=== PATIENT | female | born 1950 | race Caucasian/White ===

== ENCOUNTER 2021-07-09 13:58 | Inpatient (IN) | payer MEDICARE ==
[2021-07-09] MEDS ORDERED: Sodium Chloride 0.9% 10 ML Syringe FLUSH PRN (14:00)
--- NOTE | 2021-07-09 14:11 | EDM.PDOC ---
ED HPI GENERAL MEDICAL PROBLEM - General Chief Complaint: General Stated Complaint: GENERALIZED WEAKNESS Time Seen by Provider: 07/09/21 14:00 Source of Information: Reports: Patient History Limitations: Reports: No Limitations - History of Present Illness INITIAL COMMENTS - FREE TEXT/NARRATIVE: 71 YO WF PRESENTS TO ER WITH GENERALIZED WEAKNESS WHICH BEGAN WHEN SHE WOKE THIS AM. PT REPORTS SHE GOT UP AROUND 3AM TO USE THE BATHROOM AND STATES SHE FELT FINE AT THAT TIME. PT STATES SHE FELL ASLEEP ON THE COUCH AND WOKE AROUND 10AM AND AT THAT TIME FELT WEAK AND UNABLE TO STAND. PT DENIES HEADACHE/NECK PAIN, NO NUMBNESS OR PARAESTHESIAS. PT DENIES SLURRED SPEECH, NO BLURRED VISION, NO FACIAL DROOP, NO APRAXIA. PT DENIES CHEST PAIN OR SHORTNESS OF BREATH. PT DENIES ANY RECENT ILLNESS, NO FEVER/CHILLS, NO COUGH/CONGESTION, NO N/V/D. PT WITH PMH OF CAD WITH STENTS X 3 AND UNCONTROLLED HYPERTENSION. PT REPORTS SHE HASN'T TAKEN ANY OF HER MEDICATIONS X 3 YEARS. PT DOCTORS AT [facility] BUT STATES SHE HASN'T SEEN A DOCTOR IN YEARS. PT REPORTS TOBACCO USE X 60 YEARS. PT STATES 1 MONTH AGO SHE HAD A SYNCOPAL EPISODE BUT DIDN'T GO TO DOCTOR FOR EVALUATION. Onset Date: 07/09/21 Onset Time: 03:00 Location: Reports: Generalized Severity: Moderate Improves with: Reports: None Worsens with: Reports: None Associated Symptoms: Reports: Weakness. Denies: Confusion, Chest Pain, Cough, Diaphoresis, Fever/Chills, Headaches, Malaise, Nausea/Vomiting, Rash, Seizure, Shortness of Breath, Syncope - Related Data Allergies Allergy/AdvReac Type Severity Reaction Status Date / Time No Known Allergies Allergy Verified 07/09/21 14:09 Home Meds: Home Meds . [No Known Home Meds] 07/09/21 [History] ED ROS GENERAL - Review of Systems Review Of Systems: See Below Constitutional: Reports: Weakness HEENT: Reports: No Symptoms Respiratory: Reports: No Symptoms Cardiovascular: Reports: Blood Pressure Problem, Lightheadedness Endocrine: Reports: No Symptoms GI/Abdominal: Reports: No Symptoms : Reports: No Symptoms Musculoskeletal: Reports: No Symptoms Neurological: Reports: No Symptoms, Difficulty Walking, Weakness. Denies: Confusion, Headache, Numbness, Paresthesia, Seizure, Tingling, Trouble Speaking, Change in Speech, Gait Disturbance Psychiatric: Reports: No Symptoms Hematologic/Lymphatic: Reports: No Symptoms Immunologic: Reports: No Symptoms ED EXAM, NEURO - Physical Exam Exam: See Below Exam Limited By: No Limitations General Appearance: Alert, WD/WN, No Apparent Distress Eye Exam: Bilateral Eye: EOMI, PERRL Throat/Mouth: Normal Inspection, Normal Lips, Normal Teeth, Normal Gums, Normal Oropharynx, Normal Voice, No Airway Compromise Head Exam: Atraumatic, Normocephalic Neck: Normal Inspection, Supple, Non-Tender, Full Range of Motion Respiratory/Chest: No Respiratory Distress, Lungs Clear, Normal Breath Sounds, No Accessory Muscle Use, Chest Non-Tender Cardiovascular: Normal Peripheral Pulses, Regular Rate, Rhythm, No Edema, No Gallop, No JVD, No Murmur, No Rub GI/Abdominal: Normal Bowel Sounds, Soft, Non-Tender, No Organomegaly, No Disten tion, No Abnormal Bruit, No Mass Neurological: Alert, Normal Mood/Affect, Normal Dorsiflexion, CN II-XII Intact, Normal Plantar Flexion, Normal Reflexes, No Motor/Sensory Deficits, Oriented x 3, Difficulty Walking. No: Ataxia, Abnormal Finger to Nose, Abnormal Sensation, Abnormal Motor, Straight Leg Raise (L), Straight Leg Raise (R), Saddle Anesthesia Back Exam: Normal Inspection, Full Range of Motion, NT Extremities: Normal Inspection, Normal Range of Motion, Non-Tender, No Pedal Edema, Normal Capillary Refill Psychiatric: Normal Affect, Normal Mood Skin Exam: Warm, Dry, Intact, Normal Color, No Rash Course - Vital Signs Last Recorded V/S: Last Vital Signs Temp 97.7 F 07/09/21 14:03 Pulse 67 07/09/21 19:28 Resp 20 07/09/21 19:28 BP 199/103 H 07/09/21 19:28 Pulse Ox 95 07/09/21 19:28 - Orders/Labs/Meds Orders: Active Orders 24 hr Category Date Time Status Patient Status Manage Transfer [TRANSFER] Routine ADT 07/09/21 19:26 Active Patient Status [ADT] Routine ADT 07/09/21 19:28 Active Cardiac Monitoring [RC] . DIRECTED Care 07/09/21 14:00 Active Cardiac Monitoring [RC] CONTINUOUS Care 07/09/21 19:29 Active EKG Documentation Completion [RC] ASDIRECTED Care 07/09/21 18:32 Active Oxygen Therapy [RC] PRN Care 07/09/21 19:28 Active Peripheral IV Care [RC] . DIRECTED Care 07/09/21 14:01 Active Up With Assistance [RC] ASDIRECTED Care 07/09/21 19:28 Active Urinary Catheter Assessment [RC] ASDIRECTED Care 07/09/21 19:27 Active Urinary Catheter Insertion [Insert Urinary Catheter] [ Care 07/09/21 19:30 Ordered OM.PC] Q24H VTE/DVT Education [RC] PER UNIT ROUTINE Care 07/09/21 19:28 Active Vital Signs [RC] Q4H Care 07/09/21 19:28 Active UA W/MICROSCOPIC [URIN] Stat Lab 07/09/21 19:26 Ordered Heparin Sodium/D5W 250 ml Med 07/09/21 17:30 Active IV TITRATE Nitroglycerin/D5W [Nitroglycerin 50 MG/D5W 250 ML] Med 07/09/21 16:15 Active 50 mg in 250 ml IV TITRATE Sodium Chloride 0.9% [Normal Saline] 50 ml Med 07/09/21 17:30 Active IV ASDIRECTED Sodium Chloride 0.9% [Saline Flush] Med 07/09/21 14:00 Active 10 ml FLUSH Q8HR PRN Peripheral IV Insertion Adult [OM.PC] Routine Oth 07/09/21 14:00 Ordered Resuscitation Status Routine Resus Stat 07/09/21 19:28 Ordered EKG 12 Lead [EK] Stat Ther 07/09/21 14:00 Ordered EKG 12 Lead [EK] Stat Ther 07/09/21 18:31 Ordered Medication Orders Nitroglycerin/Dextrose (Nitroglycerin 50 Mg/D5w 250 Ml) 50 mg in 250 mls @ 3 mls/hr IV TITRATE YADIRA Last Infusion: 07/09/21 17:01 Dose: 15 mcg/min, 4.5 mls/hr Documented by: Admin: 07/09/21 16:31 Dose: 10 mcg/min, 3 mls/hr Documented by: MARIOLA Sodium Chloride (Normal Saline) 50 mls @ 200 mls/min IV ASDIRECTED YADIRA Last Admin: 07/09/21 18:14 Dose: 200 mls/min Documented by: JC Heparin Sodium/Dextrose () 250 mls @ 9.798 mls/hr IV TITRATE YADIRA; Protocol Stop: 07/10/21 17:30 Last Admin: 07/09/21 17:00 Dose: 12 units/kg/hr, 9.798 mls/hr Documented by: MAIROLA Cosigned by: JAGDEEP Sodium Chloride (Sodium Chloride 0.9% 10 Ml Syringe) 10 ml FLUSH Q8HR PRN PRN Reason: keep vein open Labs: Laboratory Tests 07/09/21 07/09/21 07/09/21 Range/Units 14:30 14:30 16:10 WBC 10.74 H (5.00-10.00) 10^3/uL RBC 5.10 (3.80-5.50) 10^6/uL Hgb 14.6 (12.0-16.0) g/dL Hct 45.3 (37.0-47.0) % MCV 88.8 (82.0-92.0) fL MCH 28.6 (27.0-31.0) pg MCHC 32.2 (32.0-36.0) g/dL RDW 14.7 H (11.5-14.5) % Plt Count 350 (150-400) 10^3/uL MPV 9.2 (7.4-10.4) fL Immature Gran % (Auto) 0.1 (0.0-5.0) % Neut % (Auto) 74.5 H (50.0-70.0) % Lymph % (Auto) 17.2 L (20.0-40.0) % [place] % (Auto) 6.7 (2.0-8.0) % Eos % (Auto) 0.7 L (1.0-3.0) % Baso % (Auto) 0.8 (0.0-1.0) % Neut # (Auto) 8.00 H (2.50-7.00) 10^3/uL Lymph # (Auto) 1.85 (1.00-4.00) 10^3/uL [place] # (Auto) 0.72 (0.10-0.80) 10^3/uL Eos # (Auto) 0.07 L (0.10-0.30) 10^3/uL Baso # (Auto) 0.09 (0.00-0.10) 10^3/uL Immature Gran # (Auto) 0.01 (0.00-0.50) 10^3/uL Sodium 144 (136-145) mmol/L Potassium 3.6 (3.5-5.1) mmol/L Chloride 106 (98-107) mmol/L Carbon Dioxide 25.9 (21.0-32.0) mmol/L Anion Gap 15.7 H (5-15) mmol/L BUN 14 (7-18) mg/dL Creatinine 0.85 (0.51-1.17) mg/dL Est Cr Clr Drug Dosing 2.19 mL/min Estimated GFR (MDRD) > 60 mL/min Glucose 90 (70-140) mg/dL Calcium 10.0 (8.7-10.3) mg/dL Total Bilirubin 0.3 (0.2-1.0) mg/dL AST 23 (15-37) U/L ALT 33 (14-63) U/L Alkaline Phosphatase 127 H (46-116) U/L POC Troponin I (0.00-0.08) ng/mL Troponin I High Sens 49.700 (0-51.000) pg/mL B-Natriuretic Peptide 111 H (0-100) pg/mL Total Protein 7.9 (6.4-8.2) g/dL Albumin 3.69 (3.40-5.00) g/dL 07/09/21 07/09/21 Range/Units 16:10 17:41 WBC (5.00-10.00) 10^3/uL RBC (3.80-5.50) 10^6/uL Hgb (12.0-16.0) g/dL Hct (37.0-47.0) % MCV (82.0-92.0) fL MCH (27.0-31.0) pg MCHC (32.0-36.0) g/dL RDW (11.5-14.5) % Plt Count (150-400) 10^3/uL MPV (7.4-10.4) fL Immature Gran % (Auto) (0.0-5.0) % Neut % (Auto) (50.0-70.0) % Lymph % (Auto) (20.0-40.0) % [place] % (Auto) (2.0-8.0) % Eos % (Auto) (1.0-3.0) % Baso % (Auto) (0.0-1.0) % Neut # (Auto) (2.50-7.00) 10^3/uL Lymph # (Auto) (1.00-4.00) 10^3/uL [place] # (Auto) (0.10-0.80) 10^3/uL Eos # (Auto) (0.10-0.30) 10^3/uL Baso # (Auto) (0.00-0.10) 10^3/uL Immature Gran # (Auto) (0.00-0.50) 10^3/uL Sodium (136-145) mmol/L Potassium (3.5-5.1) mmol/L Chloride (98-107) mmol/L Carbon Dioxide (21.0-32.0) mmol/L Anion Gap (5-15) mmol/L BUN (7-18) mg/dL Creatinine (0.51-1.17) mg/dL Est Cr Clr Drug Dosing mL/min Estimated GFR (MDRD) mL/min Glucose (70-140) mg/dL Calcium (8.7-10.3) mg/dL Total Bilirubin (0.2-1.0) mg/dL AST (15-37) U/L ALT (14-63) U/L Alkaline Phosphatase (46-116) U/L POC Troponin I 0.04 (0.00-0.08) ng/mL Troponin I High Sens 65.000 H* (0-51.000) pg/mL B-Natriuretic Peptide (0-100) pg/mL Total Protein (6.4-8.2) g/dL Albumin (3.40-5.00) g/dL Meds: Medications Generic Name Dose Route Start Last Admin Trade Name Freq PRN Reason Stop Dose Admin Nitroglycerin/Dextrose 50 mg in 250 mls @ 3 mls/hr 07/09/21 16:15 07/09/21 17:01 Nitroglycerin 50 Mg/D5w 250 Ml IV 15 mcg/min TITRATE YADIRA 4.5 mls/hr Infusion 10 MCG/MIN Sodium Chloride 50 mls @ 200 mls/min 07/09/21 17:30 07/09/21 18:14 Normal Saline IV 200 mls/min ASDIRECTED YADIRA Administration Heparin Sodium/Dextrose 250 mls @ 9.798 mls/hr 07/09/21 17:30 07/09/21 17:00 IV 07/10/21 17:30 12 units/kg/hr TITRATE YADIRA 9.798 mls/hr Administration Protocol 12 UNITS/KG/HR Sodium Chloride 10 ml 07/09/21 14:00 Sodium Chloride 0.9% 10 Ml Syringe FLUSH Q8HR PRN keep vein open Discontinued Medications Generic Name Dose Route Start Last Admin Trade Name Freq PRN Reason Stop Dose Admin Aspirin 324 mg 07/09/21 16:01 07/09/21 16:18 Aspirin 81 Mg Tab.Chew PO 07/09/21 16:02 324 mg ONETIME ONE Administration Heparin Sodium (Porcine) 5,000 units 07/09/21 16:05 07/09/21 16:23 Heparin Sodium 5,000 Units/Ml Vial IVPUSH 07/09/21 16:06 5,000 units ONETIME ONE Administration Heparin Sodium/Dextrose 250 mls @ 0.282 mls/hr 07/09/21 16:15 IV TITRATE YADIRA Protocol 12 UNITS/KG/HR Iopamidol 75 ml 07/09/21 17:22 07/09/21 18:14 Iopamidol 755 Mg/Ml 75 Ml Bottle IVPUSH 07/09/21 17:23 75 ml ONETIME ONE Administration Metoprolol Tartrate 5 mg 07/09/21 15:11 07/09/21 15:35 Metoprolol Tartrate 5 Mg/5 Ml Sdv IVPUSH 07/09/21 15:12 5 mg ONETIME ONE Administration Nitroglycerin 1 gm 07/09/21 14:36 07/09/21 14:40 Nitroglycerin 2% Oint 1 Gm Ud Packet TOP 07/09/21 14:37 1 gm ONETIME ONE Administration - Radiology Interpretation Free Text/Narrative:: CT HEAD- NAD CXR- NAD Departure - Departure Time of Disposition: 19:32 Disposition: Admitted As Inpatient 64 Condition: Serious Clinical Impression: Hypertensive crisis without congestive heart failure - Discharge Information Forms: ED Department Discharge Sepsis Event Note (ED) - Focused Exam Vital Signs: Vital Signs Temp Pulse Pulse Resp BP BP BP 07/09/21 19:28 67 20 199/103 H 07/09/21 17:34 67 13 197/93 H 07/09/21 16:30 68 16 256/106 H 07/09/21 16:15 70 16 215/103 H 07/09/21 16:00 66 16 231/100 H 07/09/21 15:46 62 15 231/100 H 07/09/21 15:38 67 15 211/103 H 07/09/21 15:35 68 211/103 H 07/09/21 14:33 89 21 H 242/107 H 07/09/21 14:03 97.7 F 97 19 188/110 H Pulse Ox 07/09/21 19:28 95 07/09/21 17:34 97 07/09/21 16:30 98 07/09/21 16:15 98 07/09/21 16:00 98 07/09/21 15:46 98 07/09/21 15:38 98 07/09/21 15:35 07/09/21 14:33 94 L 07/09/21 14:03 95 - My Orders Last 24 Hours: My Active Orders 07/09/21 14:00 Cardiac Monitoring [RC] . DIRECTED Sodium Chloride 0.9% [Saline Flush] 10 ml FLUSH Q8HR PRN Peripheral IV Insertion Adult [OM.PC] Routine EKG 12 Lead [EK] Stat 07/09/21 14:01 Peripheral IV Care [RC] . DIRECTED 07/09/21 16:15 Nitroglycerin/D5W [Nitroglycerin 50 MG/D5W 250 ML] 50 mg in 250 ml IV TITRATE 07/09/21 17:30 Heparin Sodium/D5W 250 ml IV TITRATE Sodium Chloride 0.9% [Normal Saline] 50 ml IV ASDIRECTED 07/09/21 18:31 EKG 12 Lead [EK] Stat 07/09/21 18:32 EKG Documentation Completion [RC] ASDIRECTED 07/09/21 19:26 Patient Status Manage Transfer [TRANSFER] Routine UA W/MICROSCOPIC [URIN] Stat 07/09/21 19:27 Urinary Catheter Assessment [RC] ASDIRECTED 07/09/21 19:28 Patient Status [ADT] Routine Oxygen Therapy [RC] PRN Up With Assistance [RC] ASDIRECTED VTE/DVT Education [RC] PER UNIT ROUTINE Vital Signs [RC] Q4H Resuscitation Status Routine 07/09/21 19:29 Cardiac Monitoring [RC] CONTINUOUS 07/09/21 19:30 Urinary Catheter Insertion [Insert Urinary Catheter] [OM.PC] Q24H - Assessment/Plan Last 24 Hours: My Active Orders 07/09/21 14:00 Cardiac Monitoring [RC] . DIRECTED Sodium Chloride 0.9% [Saline Flush] 10 ml FLUSH Q8HR PRN Peripheral IV Insertion Adult [OM.PC] Routine EKG 12 Lead [EK] Stat 07/09/21 14:01 Peripheral IV Care [RC] . DIRECTED 07/09/21 16:15 Nitroglycerin/D5W [Nitroglycerin 50 MG/D5W 250 ML] 50 mg in 250 ml IV TITRATE 07/09/21 17:30 Heparin Sodium/D5W 250 ml IV TITRATE Sodium Chloride 0.9% [Normal Saline] 50 ml IV ASDIRECTED 07/09/21 18:31 EKG 12 Lead [EK] Stat 07/09/21 18:32 EKG Documentation Completion [RC] ASDIRECTED 07/09/21 19:26 Patient Status Manage Transfer [TRANSFER] Routine UA W/MICROSCOPIC [URIN] Stat 07/09/21 19:27 Urinary Catheter Assessment [RC] ASDIRECTED 07/09/21 19:28 Patient Status [ADT] Routine Oxygen Therapy [RC] PRN Up With Assistance [RC] ASDIRECTED VTE/DVT Education [RC] PER UNIT ROUTINE Vital Signs [RC] Q4H Resuscitation Status Routine 07/09/21 19:29 Cardiac Monitoring [RC] CONTINUOUS 07/09/21 19:30 Urinary Catheter Insertion [Insert Urinary Catheter] [OM.PC] Q24H Assessment:: 1. HYPERTENSIVE CRISIS 2. ABNORMAL EKG 3. GENERALIZED WEAKNESS Plan: 1. DISCUSSED CASE WITH CARDIOLOGY DR NIKIA MART WHO LOOKED AT EKG AND REQUESTED REPEAT TROP I AND BNP TO RULE OUT HEART FAILURE AND POSSIBLE STEMI. [employer]BE [employer]ATER ALSO CONCERNED ABOUT POSSIBLE DISSECTION BUT RECOMMENDED HOLDING CTA AT THIS TIME IN CASE PATIENT NEEDS TO GO TO PROPERTY LOSS INSURANCE CLAIM ADJUSTER. ADDITIONAL RECOMMENDATIONS FOLLOWS: 1. NITRO GTT- KEEP SYSTOLIC BP >170 2. HEPARIN GTT WITH BOLUS 3. ASA 325MG NOW 4. ATORVASTATIN 80MG 5. LOPRESSOR 25MG BID CONTINUE WITH HR>50 6. I-STAT TROP I NOW 7. BNP TO RULE OUT UNDERLYING HEART FAILURE DISCUSSED WITH CARDIOLOGY- REPEAT EKG/AORTAGRAM-AND MEDICAL MANAGEMENT. NO BEDS/NO PROPERTY LOSS INSURANCE CLAIM ADJUSTER. DISCUSSED WITH DR BERENICE ROBIN- ACCEPTED ADMISSION FOR MANAGEMENT OF HYPERTENSION AND RULE OUT NONSTEMI @1930 SUPPORTIVE CARE
[2021-07-09] MEDS ORDERED: Nitroglycerin 2% Oint 1 GM UD Packet TOP ONE (14:36)
[2021-07-09 15:00] LABS: ANION GAP 15.7 mmol/L (5-15); CHLORIDE,CL 106 mmol/L (98-107); SODIUM,NA 144 mmol/L (136-145)
--- NOTE | 2021-07-09 15:10 | CT ---
[id number] CT/CT Head WO IV EXAM: CT Head WO IV CLINICAL DATA: WEAKNESS. COMPARISON STUDY: None FINDINGS: No intracranial hemorrhage, extra-axial fluid collection, mass, or acute ischemia. Generalized parenchymal atrophy with scattered areas of nonspecific white matter disease, commonly seen as sequela of chronic microvascular ischemia. Soft tissues are unremarkable. Moderate paranasal sinus disease. No evidence of aggressive sinusitis. IMPRESSION: No acute intracranial findings. Raymond Sweeney DO 07/09/21 [id number] Thank you for allowing us to participate in the care of your patient.
[2021-07-09] MEDS ORDERED: Metoprolol Tartrate 5 MG/5 ML SDV IVPUSH ONE (15:11)
--- NOTE | 2021-07-09 15:16 | CR ---
[id number] RAD/RAD Chest PA or AP 1V EXAM: RAD Chest PA or AP 1V INDICATION: WEAKNESS. COMPARISON: None. DISCUSSION: Cardiomediastinal silhouette is normal in size and contour. No infiltrate, effusion, pneumothorax, or edema. Low lung volumes with associated vascular crowding. IMPRESSION: No acute cardiopulmonary abnormality. Raymond Sweeney DO 07/09/21 1516 Thank you for allowing us to participate in the care of your patient.
[2021-07-09] MEDS ORDERED: Aspirin 81 MG Tab.Chew PO ONE (16:01)
[2021-07-09] MEDS ORDERED: Heparin Sodium 5,000 Units/ML Vial IVPUSH ONE (16:05)
[2021-07-09] MEDS ORDERED: Heparin Sodium/D5W 250 ML IV SCH ×2 (16:15→17:30)
[2021-07-09] MEDS ORDERED: Iopamidol 755 Mg/ML 75 ML Bottle IVPUSH ONE (17:22)
[2021-07-09] MEDS ORDERED: Sodium Chloride 0.9% 50 ML IV SCH (17:30)
--- NOTE | 2021-07-09 18:41 | CT ---
[id number] CT/CTA Chest EXAM: CTA CHEST ABDOMEN PELVIS. INDICATION: RULE OUT AORTIC DISSECTION. COMPARISON: None. DISCUSSION: Extensive atherosclerotic calcifications of the aorta and its branches. There is an ulcerating plaque involving the distal abdominal aorta. No dissection or aneurysm is identified. The pulmonary arteries are normal in appearance with no emboli identified. The lungs are clear with no nodule, infiltrate or mass identified.No pleural or pericardial effusion. Normal heart size. No mediastinal, hilar or axillary lymphadenopathy. Cholelithiasis without evidence of acute cholecystitis. General hypodensity liver consistent with hepatic steatosis. The spleen, pancreas, adrenal glands and kidneys are unremarkable. No evidence of bowel obstruction or inflammation. IMPRESSION: 1. No evidence of aortic dissection. Raymond Sweeney DO 07/09/21 1695 Thank you for allowing us to participate in the care of your patient.
[2021-07-09] MEDS: Metoprolol Tartrate 50 MG Tab PO SCH (21:41)
[2021-07-09] MEDS: atorvaSTATin 40 MG Tab PO SCH (21:42)
[2021-07-10] MEDS ORDERED: Nitroglycerin 0.4 MG Tab.SL SL PRN (00:21)
[2021-07-10] MEDS ORDERED: Lidocaine 2% 100 MG/5 ML Syringe IVPUSH PRN (00:21)
[2021-07-10] MEDS ORDERED: EPINEPHrine 1:10,000 1 MG/10 ML Syringe IVPUSH PRN (00:21)
[2021-07-10] MEDS ORDERED: Atropine 0.1 MG/ML 10 ML Syringe IVPUSH PRN (00:21)
[2021-07-10 07:16] LABS: ANION GAP 15.1 mmol/L (5-15); CHLORIDE,CL 104 mmol/L (98-107); SODIUM,NA 141 mmol/L (136-145)
[2021-07-10] MEDS: Metoprolol Tartrate 50 MG Tab PO SCH ×2 (08:36→21:48)
[2021-07-10] MEDS: Aspirin 81 MG Tab.Chew PO SCH (08:36)
[2021-07-10 08:53] LABS: HEMOGLOBIN A1C 5.6 % (4.3-5.7)
[2021-07-10] MEDS: amLODIPine 5 MG Tab PO SCH (12:40)
[2021-07-10] MEDS: Lisinopril 10 MG Tab PO SCH (12:40)
--- NOTE | 2021-07-10 16:58 | PCM.HP.2 ---
H&P History of Present Illness - General Date of Service: 07/10/21 Admit Problem/Dx: Admission Diagnosis/Problem Admission Diagnosis/Problem Hypertensive crisis without congestive heart failure - History of Present Illness Initial Comments - Free Text/Narative: 71 year old female admitted inpatient for hypertensive emergency/NSTEMI. She presented to the ED on 07/09/2021 with complaints of generalized weakness. She was ruled out for STEMI and dissection and admitted for medical management of hypertension. Unknown comorbid conditions. Patient reports she has not had medical care in years. - Related Data Allergies/Adverse Reactions: Allergies Allergy/AdvReac Type Severity Reaction Status Date / Time thimerosal Allergy Facial Verified 07/09/21 21:19 Swelling Home Medications: Home Meds . [No Known Home Meds] 07/09/21 [History] Past Medical History HEENT History: Reports: Impaired Vision Cardiovascular History: Reports: Hypertension, SD, Stents Respiratory History: Reports: Bronchitis, Recurrent SOMMELIER History: Reports: Musculoskeletal History: Reports: None Neurological History: Reports: None Psychiatric History: Reports: None Endocrine/Metabolic History: Reports: None Hematologic History: Reports: None Immunologic History: Reports: None Oncologic (Cancer) History: Reports: None Dermatologic History: Reports: None - Infectious Disease History Infectious Disease History: Reports: Chicken Pox, Measles, Mumps, Other (See Below) Other Infectious Disease History: Hepatitis unknown type - Past Surgical History Cardiovascular Surgical History: Reports: Coronary Artery Stent Female Surgical History: Reports: Hysterectomy Endocrine Surgical History: Reports: None Neurological Surgical History: Reports: None Musculoskeletal Surgical History: Reports: None Dermatological Surgical History: Reports: None Social & Family History - Tobacco Use Tobacco Use Status *Q: Current Every Day Tobacco User Years of Tobacco use: 60 Packs/Tins Daily: 0.5 - Caffeine Use Caffeine Use: Reports: Soda - Recreational Drug Use Recreational Drug Use: No H&P Review of Systems - Review of Systems: Review Of Systems: See Below General: Reports: Weakness, Fatigue. Denies: Fever HEENT: Denies: Dysphasia, Headaches, Sinus Congestion, Sore Throat, Visual Changes Pulmonary: Denies: Shortness of Breath, Wheezing, Cough Cardiovascular: Reports: Edema. Denies: Chest Pain, Lightheadedness Gastrointestinal: Denies: Abdominal Pain, Constipation, Diarrhea, Melena, Nausea, Vomiting Genitourinary: Reports: Other. Denies: Dysuria, Frequency, Urgency Musculoskeletal: Reports: Back Pain, Leg Pain, Muscle Pain Skin: Denies: Pallor, Bruising, Rash Psychiatric: Denies: Confusion, Depression, Anxiety Neurological: Reports: Difficulty Walking (weak). Denies: Confusion, Headache Exam - Exam Exam: See Below - Vital Signs Vital Signs: Last Vital Signs Temp 36.6 C 07/10/21 15:15 Pulse 61 07/10/21 16:30 Resp 18 07/10/21 15:15 BP 164/65 H 07/10/21 16:30 Pulse Ox 96 07/10/21 15:15 Weight: 81.647 kg - Exam Physical Exam Comments:: GENERAL: Ill-appearing adult in no acute distress. HEENT: Normocephalic, atraumatic. Conjunctiva clear. Nares patent without discharge. Mucous membranes moist, posterior pharynx unremarkable. NECK: Supple, no masses. CV: Regular rate and rhythm, no murmurs, rubs, or gallops. 2+ radial pulses. PULMONARY: Normal effort, scattered rhonchi noted. ABDOMEN: Positive bowel sounds, soft, nontender, nondistended. EXTREMITIES: Trace BLE edema, no cyanosis or clubbing. MUSCULOSKELETAL: Moves all extremities well. NEUROLOGICAL: No obvious deficits. No pronator drift. Muscle strength 4+ Bilat upper extremities and 4+ RLE and 5+ LLE DERMATOLOGIC: No rashes or suspicious lesions in exposed areas. PSYCHIATRIC: Alert, interactive, appropriate affect. - Patient Data Lab Results Last 24 hrs: Laboratory Results - last 24 hr 07/09/21 07/09/21 07/09/21 Range/Units 16:10 17:41 19:47 WBC (5.00-10.00) 10^3/uL RBC (3.80-5.50) 10^6/uL Hgb (12.0-16.0) g/dL Hct (37.0-47.0) % MCV (82.0-92.0) fL MCH (27.0-31.0) pg MCHC (32.0-36.0) g/dL RDW (11.5-14.5) % Plt Count (150-400) 10^3/uL MPV (7.4-10.4) fL Immature Gran % (Auto) (0.0-5.0) % Neut % (Auto) (50.0-70.0) % Lymph % (Auto) (20.0-40.0) % Whitley % (Auto) (2.0-8.0) % Eos % (Auto) (1.0-3.0) % Baso % (Auto) (0.0-1.0) % Neut # (Auto) (2.50-7.00) 10^3/uL Lymph # (Auto) (1.00-4.00) 10^3/uL Whitley # (Auto) (0.10-0.80) 10^3/uL Eos # (Auto) (0.10-0.30) 10^3/uL Baso # (Auto) (0.00-0.10) 10^3/uL Immature Gran # (Auto) (0.00-0.50) 10^3/uL APTT (22.8-31.4) SEC Sodium (136-145) mmol/L Potassium (3.5-5.1) mmol/L Chloride (98-107) mmol/L Carbon Dioxide (21.0-32.0) mmol/L Anion Gap (5-15) mmol/L BUN (7-18) mg/dL Creatinine (0.51-1.17) mg/dL Est Cr Clr Drug Dosing mL/min Estimated GFR (MDRD) mL/min Glucose (70-140) mg/dL Hemoglobin A1c (4.3-5.7) % Calcium (8.7-10.3) mg/dL Total Bilirubin (0.2-1.0) mg/dL AST (15-37) U/L ALT (14-63) U/L Alkaline Phosphatase (46-116) U/L Troponin I High Sens 65.000 H* (0-51.000) pg/mL B-Natriuretic Peptide 111 H (0-100) pg/mL Total Protein (6.4-8.2) g/dL Albumin (3.40-5.00) g/dL TSH, Ultra Sensitive (0.340-4.820) uIU/mL Specimen Type Urinvoid Urine Color Yellow (YELLOW) Urine Appearance Slightly cloudy H (CLEAR) Urine pH 6.0 (5.0-9.0) Ur Specific Rodney 1.020 (1.005-1.030) Urine Protein >=300 H (NEGATIVE) mg/dL Urine Glucose (UA) Negative (NEGATIVE) mg/dL Urine Ketones Negative (NEGATIVE) mg/dL Urine Occult Blood Trace-intact H (NEGATIVE) Urine Nitrite Negative (NEGATIVE) Urine Bilirubin Negative (NEGATIVE) Urine Urobilinogen 0.2 (0.2-1.0) E.U./dL Ur Leukocyte Esterase Negative (NEGATIVE) Urine RBC 0-5 (0-5) /HPF Urine WBC 0-5 (0-5) /HPF Ur Epithelial Cells Moderate H /LPF Urine Bacteria Rare (NONE TO FEW) /HPF SARS CoV-2 RNA Rapid SATISH (NEGATIVE) 07/09/21 07/09/21 07/09/21 Range/Units 19:47 23:05 23:05 WBC (5.00-10.00) 10^3/uL RBC (3.80-5.50) 10^6/uL Hgb (12.0-16.0) g/dL Hct (37.0-47.0) % MCV (82.0-92.0) fL MCH (27.0-31.0) pg MCHC (32.0-36.0) g/dL RDW (11.5-14.5) % Plt Count (150-400) 10^3/uL MPV (7.4-10.4) fL Immature Gran % (Auto) (0.0-5.0) % Neut % (Auto) (50.0-70.0) % Lymph % (Auto) (20.0-40.0) % Whitley % (Auto) (2.0-8.0) % Eos % (Auto) (1.0-3.0) % Baso % (Auto) (0.0-1.0) % Neut # (Auto) (2.50-7.00) 10^3/uL Lymph # (Auto) (1.00-4.00) 10^3/uL Whitley # (Auto) (0.10-0.80) 10^3/uL Eos # (Auto) (0.10-0.30) 10^3/uL Baso # (Auto) (0.00-0.10) 10^3/uL Immature Gran # (Auto) (0.00-0.50) 10^3/uL APTT 102.9 H* (22.8-31.4) SEC Sodium (136-145) mmol/L Potassium (3.5-5.1) mmol/L Chloride (98-107) mmol/L Carbon Dioxide (21.0-32.0) mmol/L Anion Gap (5-15) mmol/L BUN (7-18) mg/dL Creatinine (0.51-1.17) mg/dL Est Cr Clr Drug Dosing mL/min Estimated GFR (MDRD) mL/min Glucose (70-140) mg/dL Hemoglobin A1c (4.3-5.7) % Calcium (8.7-10.3) mg/dL Total Bilirubin (0.2-1.0) mg/dL AST (15-37) U/L ALT (14-63) U/L Alkaline Phosphatase (46-116) U/L Troponin I High Sens 59.000 H* (0-51.000) pg/mL B-Natriuretic Peptide (0-100) pg/mL Total Protein (6.4-8.2) g/dL Albumin (3.40-5.00) g/dL TSH, Ultra Sensitive (0.340-4.820) uIU/mL Specimen Type Urine Color (YELLOW) Urine Appearance (CLEAR) Urine pH (5.0-9.0) Ur Specific Rodney (1.005-1.030) Urine Protein (NEGATIVE) mg/dL Urine Glucose (UA) (NEGATIVE) mg/dL Urine Ketones (NEGATIVE) mg/dL Urine Occult Blood (NEGATIVE) Urine Nitrite (NEGATIVE) Urine Bilirubin (NEGATIVE) Urine Urobilinogen (0.2-1.0) E.U./dL Ur Leukocyte Esterase (NEGATIVE) Urine RBC (0-5) /HPF Urine WBC (0-5) /HPF Ur Epithelial Cells /LPF Urine Bacteria (NONE TO FEW) /HPF SARS CoV-2 RNA Rapid SATISH Negative (NEGATIVE) 07/10/21 07/10/21 07/10/21 Range/Units 06:13 06:15 06:15 WBC 13.00 H (5.00-10.00) 10^3/uL RBC 4.46 (3.80-5.50) 10^6/uL Hgb 13.0 D (12.0-16.0) g/dL Hct 39.7 (37.0-47.0) % MCV 89.0 (82.0-92.0) fL MCH 29.1 (27.0-31.0) pg MCHC 32.7 (32.0-36.0) g/dL RDW 14.7 H (11.5-14.5) % Plt Count 302 (150-400) 10^3/uL MPV 9.3 (7.4-10.4) fL Immature Gran % (Auto) 0.2 (0.0-5.0) % Neut % (Auto) 74.5 H (50.0-70.0) % Lymph % (Auto) 14.6 L (20.0-40.0) % Whitley % (Auto) 8.4 H (2.0-8.0) % Eos % (Auto) 1.7 (1.0-3.0) % Baso % (Auto) 0.6 (0.0-1.0) % Neut # (Auto) 9.69 H (2.50-7.00) 10^3/uL Lymph # (Auto) 1.90 (1.00-4.00) 10^3/uL Whitley # (Auto) 1.09 H (0.10-0.80) 10^3/uL Eos # (Auto) 0.22 (0.10-0.30) 10^3/uL Baso # (Auto) 0.08 (0.00-0.10) 10^3/uL Immature Gran # (Auto) 0.02 (0.00-0.50) 10^3/uL APTT 68.4 H* D (22.8-31.4) SEC Sodium 141 (136-145) mmol/L Potassium 3.8 (3.5-5.1) mmol/L Chloride 104 (98-107) mmol/L Carbon Dioxide 25.7 (21.0-32.0) mmol/L Anion Gap 15.1 H (5-15) mmol/L BUN 12 (7-18) mg/dL Creatinine 0.79 (0.51-1.17) mg/dL Est Cr Clr Drug Dosing 52.46 mL/min Estimated GFR (MDRD) > 60 mL/min Glucose 118 (70-140) mg/dL Hemoglobin A1c 5.6 (4.3-5.7) % Calcium 8.9 (8.7-10.3) mg/dL Total Bilirubin 0.4 (0.2-1.0) mg/dL AST 21 (15-37) U/L ALT 26 (14-63) U/L Alkaline Phosphatase 108 (46-116) U/L Troponin I High Sens (0-51.000) pg/mL B-Natriuretic Peptide (0-100) pg/mL Total Protein 6.7 (6.4-8.2) g/dL Albumin 3.17 L (3.40-5.00) g/dL TSH, Ultra Sensitive 3.125 (0.340-4.820) uIU/mL Specimen Type Urine Color (YELLOW) Urine Appearance (CLEAR) Urine pH (5.0-9.0) Ur Specific Rodney (1.005-1.030) Urine Protein (NEGATIVE) mg/dL Urine Glucose (UA) (NEGATIVE) mg/dL Urine Ketones (NEGATIVE) mg/dL Urine Occult Blood (NEGATIVE) Urine Nitrite (NEGATIVE) Urine Bilirubin (NEGATIVE) Urine Urobilinogen (0.2-1.0) E.U./dL Ur Leukocyte Esterase (NEGATIVE) Urine RBC (0-5) /HPF Urine WBC (0-5) /HPF Ur Epithelial Cells /LPF Urine Bacteria (NONE TO FEW) /HPF SARS CoV-2 RNA Rapid SATISH (NEGATIVE) Result Diagrams: 07/10/21 06:15 07/10/21 06:15 Sepsis Event Note - Evaluation Sepsis Screening Result: No Definite Risk - Focused Exam Vital Signs: Vital Signs Temp Temp Pulse Pulse Pulse Resp BP 07/10/21 16:30 61 07/10/21 16:15 63 07/10/21 16:00 64 07/10/21 15:45 67 07/10/21 15:15 36.6 C 68 18 07/10/21 14:49 64 07/10/21 14:30 71 07/10/21 13:45 68 07/10/21 13:00 65 07/10/21 12:40 163/76 H 07/10/21 12:24 66 07/10/21 12:00 66 07/10/21 11:45 68 07/10/21 11:30 68 07/10/21 11:14 36.6 C 71 20 07/10/21 11:08 72 07/10/21 10:30 73 07/10/21 10:15 62 07/10/21 10:00 66 07/10/21 09:48 62 07/10/21 09:35 63 07/10/21 09:15 64 07/10/21 09:13 72 07/10/21 08:49 70 07/10/21 08:36 74 169/89 H 07/10/21 08:15 74 07/10/21 08:00 64 07/10/21 07:45 70 07/10/21 07:30 62 07/10/21 07:10 66 07/10/21 06:45 67 07/10/21 06:34 63 07/10/21 06:25 36.5 C 67 18 07/10/21 05:45 70 07/10/21 05:31 61 07/10/21 05:16 64 16 07/10/21 05:00 67 16 BP BP Pulse Ox 07/10/21 16:30 164/65 H 07/10/21 16:15 165/73 H 07/10/21 16:00 168/70 H 07/10/21 15:45 183/78 H 07/10/21 15:15 169/90 H 96 07/10/21 14:49 155/72 H 07/10/21 14:30 148/73 H 07/10/21 13:45 189/81 H 07/10/21 13:00 170/71 H 07/10/21 12:40 07/10/21 12:24 153/80 H 07/10/21 12:00 136/80 07/10/21 11:45 152/75 H 07/10/21 11:30 148/81 H 07/10/21 11:14 166/63 H 97 07/10/21 11:08 178/79 H 07/10/21 10:30 176/78 H 07/10/21 10:15 161/70 H 07/10/21 10:00 170/76 H 07/10/21 09:48 152/70 H 07/10/21 09:35 155/64 H 07/10/21 09:15 144/65 H 07/10/21 09:13 180/74 H 07/10/21 08:49 135/86 07/10/21 08:36 07/10/21 08:15 165/77 H 07/10/21 08:00 152/65 H 07/10/21 07:45 157/71 H 07/10/21 07:30 164/70 H 07/10/21 07:10 162/70 H 07/10/21 06:45 164/73 H 07/10/21 06:34 162/69 H 07/10/21 06:25 185/73 H 96 07/10/21 05:45 178/81 H 07/10/21 05:31 162/72 H 07/10/21 05:16 144/73 H 95 07/10/21 05:00 168/74 H 96 Problem List Initiated/Reviewed/Updated: Yes Orders Last 24hrs: Active Orders 24 hr Category Date Time Status Patient Status [ADT] Routine ADT 07/09/21 19:28 Active Cardiac Monitoring [RC] 03,07,11,15,19,23 Care 07/09/21 19:29 Active Oxygen Therapy [RC] .PRN Care 07/09/21 19:28 Active Up With Assistance [RC] DAILY Care 07/09/21 19:28 Active Urinary Catheter Assessment [RC] Care 07/09/21 19:27 Active Urinary Catheter Insertion [Insert Urinary Catheter] [ Care 07/09/21 19:30 O rdered OM.PC] Q24H Vital Signs [RC] 03,07,11,15,19,23 Care 07/09/21 19:28 Active CBC WITH AUTO DIFF [HEME] AM Lab 07/11/21 05:11 Ordered CMP [COMPREHENSIVE METABOLIC PN,CMP] [CHEM] AM Lab 07/11/21 05:11 Ordered Aspirin Med 07/10/21 08:00 Active 81 mg PO WITHBREAKFAST Atropine [Atropine 0.1 MG/ML] Med 07/10/21 00:21 Active See Dose Instructions IVPUSH ASDIRECTED PRN EPINEPHrine [EPINEPHrine 1:10,000] Med 07/10/21 00:21 Active 1 mg IVPUSH ASDIRECTED PRN Lidocaine 2% [Xylocaine 2%] Med 07/10/21 00:21 Active See Dose Instructions IVPUSH ASDIRECTED PRN Metoprolol Tartrate [Lopressor] Med 07/09/21 21:45 Active 50 mg PO BID Nitroglycerin [Nitrostat] Med 07/10/21 00:21 Active 0.4 mg SL ASDIRECTED PRN Nitroglycerin/D5W [Nitroglycerin 50 MG/D5W 250 ML] Med 07/09/21 16:15 Active 50 mg in 250 ml IV TITRATE amLODIPine [Norvasc] Med 07/10/21 11:45 Active 5 mg PO DAILY atorvaSTATin [Lipitor] Med 07/09/21 21:45 Active 80 mg PO BEDTIME lisinopriL [Prinivil] Med 07/10/21 11:30 Active 10 mg PO DAILY Resuscitation Status Routine Resus Stat 07/09/21 19:28 Ordered EKG 12 Lead [EK] Stat Ther 07/09/21 18:31 Stop Req Medication Orders Amlodipine Besylate (Amlodipine 5 Mg Tab) 5 mg PO DAILY [facility] Last Admin: 07/10/21 12:40 Dose: 5 mg Documented by: KOKI Aspirin (Aspirin 81 Mg Tab.Chew) 81 mg PO WITHBREAKFAST [facility] Last Admin: 07/10/21 08:36 Dose: 81 mg Documented by: KOKI Atorvastatin Calcium (Atorvastatin 40 Mg Tab) 80 mg PO BEDTIME [facility] Last Admin: 07/09/21 21:42 Dose: 80 mg Documented by: MEG Atropine Sulfate (Atropine 0.1 Mg/Ml 10 Ml Syringe) 0 mg IVPUSH ASDIRECTED PRN PRN Reason: Heart. Epinephrine HCl (Epinephrine 1:10,000 1 Mg/10 Ml Syringe) 1 mg IVPUSH ASDIRECTED PRN PRN Reason: Heart. Nitroglycerin/Dextrose (Nitroglycerin 50 Mg/D5w 250 Ml) 50 mg in 250 mls @ 3 mls/hr IV TITRATE [facility] Last Infusion: 07/10/21 14:34 Dose: 15 mcg/min, 4.5 mls/hr Documented by: Infusion: 07/10/21 08:49 Dose: 20 mcg/min, 6 mls/hr Documented by: Infusion: 07/10/21 08:05 Dose: 30 mcg/min, 9 mls/hr Documented by: Infusion: 07/10/21 07:50 Dose: 35 mcg/min, 10.5 mls/hr Documented by: Infusion: 07/10/21 00:18 Dose: 40 mcg/min, 12 mls/hr Documented by: Infusion: 07/09/21 19:30 Dose: 35 mcg/min, 10.5 mls/hr Documented by: Infusion: 07/09/21 19:00 Dose: 30 mcg/min, 9 mls/hr Documented by: Infusion: 07/09/21 18:15 Dose: 25 mcg/min, 7.5 mls/hr Documented by: Infusion: 07/09/21 17:45 Dose: 20 mcg/min, 6 mls/hr Documented by: Infusion: 07/09/21 17:01 Dose: 15 mcg/min, 4.5 mls/hr Documented by: Admin: 07/09/21 16:31 Dose: 10 mcg/min, 3 mls/hr Documented by: MARIOLA Lidocaine HCl (Lidocaine 2% 100 Mg/5 Ml Syringe) 0 mg IVPUSH ASDIRECTED PRN PRN Reason: Heart. Lisinopril (Lisinopril 10 Mg Tab) 10 mg PO DAILY [facility] Last Admin: 07/10/21 12:40 Dose: 10 mg Documented by: KOKI Metoprolol Tartrate (Metoprolol Tartrate 50 Mg Tab) 50 mg PO BID [facility] Last Admin: 07/10/21 08:36 Dose: 50 mg Documented by: Admin: 07/09/21 21:41 Dose: 50 mg Documented by: MEG Nitroglycerin (Nitroglycerin 0.4 Mg Tab.Sl) 0.4 mg SL ASDIRECTED PRN PRN Reason: Heart. Assessment/Plan Comment:: HPI summary: 71 year old female admitted inpatient for hypertensive emergency/NSTEMI. She presented to the ED on 07/09/2021 with complaints of generalized weakness. She was ruled out for STEMI and dissection and admitted for medical management of hypertension. Unknown comorbid conditions. Patient reports she has not had medical care in years. 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 Repeat EKG improved NSR, possible left atrial enlargement, LV hypertrophy with repolarization abnormality, inferior infarct age undetermined, rate 70. -Lab: WBC 10.74, Hgb 14.6, Hct 45.3, Plt 350, Na 144, K 3.6, Anion 15.7, BUN 14, cr 0.85, GFR >60, LFT unremarkable, initial trop HS 49.7 (neg), repeat 65 (elevated), BNP 111, COVID neg -Urine slightly cloudy, >300 protein, trace blood, mod epithelial cells, neg nitrite and rare bacteria -Nitro gtt to keep SBP <170 -Heparin gtt with bolus -ASA, atorvastatin, Lopressor -CTA: No evidence of aortic dissection -Repeats discussed with cardiology, no beds in [place], [facility] in [facility] course: 07/10/2021: No overnight concerns. Blood pressure overnight has been in the 160s-170s systolic. NO angina, dyspnea or edema. Afebrile. HR 50s. Patient reports she has not had these symptoms throughout. Suspect stress on heart related to uncontrolled BP. Heparin gtt discontinued. She continues to report generalized weakness and is unable to stand on her own. Troponin is downtrending. WBC 13 with 74.5% neutrophils, no evidence of obvious infection. Hgb 13, HCt 39.7, Na 141, K 3.8, anion 15.1, BUN 12, creatinine 0.79, GFR >60, A1c 5.6, LFT unremarkable. TSH 3.125. Hospitalization problems and plan: # Hypertensive Emergency - Start lisinopril 10mg daily and amlodipine 5mg daily - Continue nitro gtt and titrate to SBP less than 180 - Continue ASA 81mg daily - Continue atorvastatin 80mg daily - Continue metoprolol tartrate 50mg orally twice daily # Generalized weakness - Consideration of physical therapy eval if not improving next 24-48 hours as BP improves # Tobacco use - nicotine patch Chronic, stable conditions: # Hx stent placement: patient has had no medical management for years Hospitalization details: # FEN: oral intake, IV nitro infusing; electrolytes stable; regular diet # PPX: ASA # Code status: Full code # Emergency contact: # Disposition: possible discharge to [facility] if weakness does not improve after three midnights with resolution of hypertension
[2021-07-10] MEDS: Nicotine 14 MG/24 Hr Patch TRDERM SCH (17:55)
[2021-07-10] MEDS: atorvaSTATin 40 MG Tab PO SCH (21:48)
[2021-07-10] MEDS: Labetalol 100 MG/20 ML MDV IVPUSH PRN (23:36)
[2021-07-11] MEDS: Labetalol 100 MG/20 ML MDV IVPUSH PRN ×4 (01:04→18:43)
[2021-07-11] MEDS: Acetaminophen 325 MG Tab PO PRN ×2 (02:15→22:20)
[2021-07-11] MEDS: Melatonin 3 MG Tab PO PRN ×2 (02:15→22:19)
[2021-07-11] MEDS: Aspirin 81 MG Tab.Chew PO SCH (07:58)
[2021-07-11] MEDS: Lisinopril 10 MG Tab PO SCH (08:00)
[2021-07-11] MEDS: amLODIPine 5 MG Tab PO SCH (08:00)
[2021-07-11] MEDS: Metoprolol Tartrate 50 MG Tab PO SCH ×2 (08:00→20:49)
[2021-07-11] MEDS: Nicotine 14 MG/24 Hr Patch TRDERM SCH (08:00)
[2021-07-11 08:44] LABS: ANION GAP 15.4 mmol/L (5-15); CHLORIDE,CL 106 mmol/L (98-107); SODIUM,NA 143 mmol/L (136-145)
--- NOTE | 2021-07-11 12:47 | PCM.PN ---
- General Info Date of Service: 07/11/21 Subjective Update: Patient sitting up in bed. Denies any concerns. Functional Status: Reports: Pain Controlled, Tolerating Diet, Ambulating (weak) - Review of Systems General: Reports: Weakness (generalized), Fatigue. Denies: Fever HEENT: Denies: Headaches, Sore Throat, Visual Changes Pulmonary: Denies: Shortness of Breath, Cough, Wheezing Cardiovascular: Denies: Chest Pain, Edema, Lightheadedness Gastrointestinal: Denies: Abdominal Pain, Constipation, Diarrhea, Nausea, Vomiting Genitourinary: Denies: Dysuria, Frequency, Urgency Musculoskeletal: Denies: Neck Pain, Back Pain, Joint Pain Skin: Denies: Pallor, Dryness, Rash Neurological: Denies: Confusion, Headache, Trouble Speaking Psychiatric: Denies: Confusion, Depression, Anxiety - Patient Data Vitals - Most Recent: Last Vital Signs Temp 36.4 C 07/11/21 11:00 Pulse 66 07/11/21 11:00 Resp 16 07/11/21 11:00 BP 169/69 H 07/11/21 11:00 Pulse Ox 94 L 07/11/21 11:00 Weight - Most Recent: 81.647 kg I&O - Last 24 Hours: Intake & Output 07/10/21 07/11/21 07/11/21 22:59 06:59 14:59 Intake Total 79 120 Output Total 600 750 Balance -521 -630 Lab Results Last 24 Hours: Laboratory Results - last 24 hr 07/11/21 07/11/21 Range/Units 07:10 07:10 WBC 9.89 (5.00-10.00) 10^3/uL RBC 4.40 (3.80-5.50) 10^6/uL Hgb 13.0 (12.0-16.0) g/dL Hct 38.6 (37.0-47.0) % MCV 87.7 (82.0-92.0) fL MCH 29.5 (27.0-31.0) pg MCHC 33.7 (32.0-36.0) g/dL RDW 14.5 (11.5-14.5) % Plt Count 280 (150-400) 10^3/uL MPV 9.7 (7.4-10.4) fL Immature Gran % (Auto) 0.3 (0.0-5.0) % Neut % (Auto) 60.3 (50.0-70.0) % Lymph % (Auto) 26.8 (20.0-40.0) % [place] % (Auto) 11.4 H (2.0-8.0) % Eos % (Auto) 0.8 L (1.0-3.0) % Baso % (Auto) 0.4 (0.0-1.0) % Neut # (Auto) 5.96 (2.50-7.00) 10^3/uL Lymph # (Auto) 2.65 (1.00-4.00) 10^3/uL [place] # (Auto) 1.13 H (0.10-0.80) 10^3/uL Eos # (Auto) 0.08 L (0.10-0.30) 10^3/uL Baso # (Auto) 0.04 (0.00-0.10) 10^3/uL Immature Gran # (Auto) 0.03 (0.00-0.50) 10^3/uL Sodium 143 (136-145) mmol/L Potassium 3.7 (3.5-5.1) mmol/L Chloride 106 (98-107) mmol/L Carbon Dioxide 25.3 (21.0-32.0) mmol/L Anion Gap 15.4 H (5-15) mmol/L BUN 14 (7-18) mg/dL Creatinine 0.86 (0.51-1.17) mg/dL Est Cr Clr Drug Dosing 48.19 mL/min Estimated GFR (MDRD) > 60 mL/min Glucose 113 (70-140) mg/dL Calcium 9.2 (8.7-10.3) mg/dL Total Bilirubin 0.5 (0.2-1.0) mg/dL AST 16 (15-37) U/L ALT 25 (14-63) U/L Alkaline Phosphatase 109 (46-116) U/L Total Protein 6.1 L (6.4-8.2) g/dL Albumin 3.16 L (3.40-5.00) g/dL Triglycerides 61 (30-150) mg/dL Cholesterol 153 (100-200) mg/dL LDL Cholesterol, Calc 74 (0-100) mg/dL HDL Cholesterol 67 H (40-60) mg/dL Med Orders - Current: Current Medications Acetaminophen (Acetaminophen 325 Mg Tab) 650 mg PO Q4H PRN PRN Reason: Pain Last Admin: 07/11/21 02:15 Dose: 650 mg Documented by: Amlodipine Besylate (Amlodipine 5 Mg Tab) 5 mg PO DAILY [facility] Last Admin: 07/11/21 08:00 Dose: 5 mg Documented by: Aspirin (Aspirin 81 Mg Tab.Chew) 81 mg PO WITHBREAKFAST [facility] Last Admin: 07/11/21 07:58 Dose: 81 mg Documented by: Atorvastatin Calcium (Atorvastatin 40 Mg Tab) 80 mg PO BEDTIME [facility] Last Admin: 07/10/21 21:48 Dose: 80 mg Documented by: Atropine Sulfate (Atropine 0.1 Mg/Ml 10 Ml Syringe) 0 mg IVPUSH ASDIRECTED PRN PRN Reason: Heart. Epinephrine HCl (Epinephrine 1:10,000 1 Mg/10 Ml Syringe) 1 mg IVPUSH ASDIRECTED PRN PRN Reason: Heart. Labetalol HCl (Labetalol 100 Mg/20 Ml Mdv) 5 mg IVPUSH Q1H PRN PRN Reason: Hypertension Last Admin: 07/11/21 05:58 Dose: 5 mg Documented by: Lidocaine HCl (Lidocaine 2% 100 Mg/5 Ml Syringe) 0 mg IVPUSH ASDIRECTED PRN PRN Reason: Heart. Lisinopril (Lisinopril 10 Mg Tab) 10 mg PO DAILY [facility] Last Admin: 07/11/21 08:00 Dose: 10 mg Documented by: Melatonin (Melatonin 3 Mg Tab) 3 mg PO BEDTIME PRN PRN Reason: Insomnia Last Admin: 07/11/21 02:15 Dose: 3 mg Documented by: Metoprolol Tartrate (Metoprolol Tartrate 50 Mg Tab) 50 mg PO BID [facility] Last Admin: 07/11/21 08:00 Dose: 50 mg Documented by: Nicotine (Nicotine 14 Mg/24 Hr Patch) 14 mg TRDERM DAILY [facility] Last Admin: 07/11/21 08:00 Dose: 14 mg Documented by: Nitroglycerin (Nitroglycerin 0.4 Mg Tab.Sl) 0.4 mg SL ASDIRECTED PRN PRN Reason: Heart. Discontinued Medications Aspirin (Aspirin 81 Mg Tab.Chew) 324 mg PO ONETIME ONE Stop: 07/09/21 16:02 Last Admin: 07/09/21 16:18 Dose: 324 mg Documented by: Heparin Sodium (Porcine) (Heparin Sodium 5,000 Units/Ml Vial) 5,000 units IVPUSH ONETIME ONE Stop: 07/09/21 16:06 Last Admin: 07/09/21 16:23 Dose: 5,000 units Documented by: Heparin Sodium/Dextrose () 250 mls @ 0.282 mls/hr IV TITRATE YADIRA; Protocol Nitroglycerin/Dextrose (Nitroglycerin 50 Mg/D5w 250 Ml) 50 mg in 250 mls @ 3 mls/hr IV TITRATE YADIRA Last Infusion: 07/10/21 19:50 Dose: 10 mcg/min, 3 mls/hr Documented by: Sodium Chloride (Normal Saline) 50 mls @ 200 mls/min IV ASDIRECTED YADIRA Last Admin: 07/09/21 18:14 Dose: 200 mls/min Documented by: Heparin Sodium/Dextrose () 250 mls @ 9.798 mls/hr IV TITRATE YADIRA; Protocol Stop: 07/10/21 17:30 Last Titration: 07/10/21 00:48 Dose: 9 units/kg/hr, 7.348 mls/hr Documented by: Iopamidol (Iopamidol 755 Mg/Ml 75 Ml Bottle) 75 ml IVPUSH ONETIME ONE Stop: 07/09/21 17:23 Last Admin: 07/09/21 18:14 Dose: 75 ml Documented by: Metoprolol Tartrate (Metoprolol Tartrate 5 Mg/5 Ml Sdv) 5 mg IVPUSH ONETIME ONE Stop: 07/09/21 15:12 Last Admin: 07/09/21 15:35 Dose: 5 mg Documented by: Nitroglycerin (Nitroglycerin 2% Oint 1 Gm Ud Packet) 1 gm TOP ONETIME ONE Stop: 07/09/21 14:37 Last Admin: 07/09/21 14:40 Dose: 1 gm Documented by: Sodium Chloride (Sodium Chloride 0.9% 10 Ml Syringe) 10 ml FLUSH Q8HR PRN PRN Reason: keep vein open - Exam Urinary Catheter Total Time: 1Days 12Hours Physical Findings Comments:: GENERAL: Well-appearing adult in no acute distress. HEENT: Normocephalic, atraumatic. Conjunctiva clear. Nares patent without discharge. Mucous membranes moist, posterior pharynx unremarkable. NECK: Supple, no masses. CV: Regular rate and rhythm, no murmurs, rubs, or gallops. 2+ radial pulses. PULMONARY: Normal effort, rhonchi and exp wheezes on the right, clear on the left. ABDOMEN: Positive bowel sounds, soft, nontender, nondistended. EXTREMITIES: Trace BLE edema, no cyanosis or clubbing. MUSCULOSKELETAL: Moves all extremities well, but does exhibit generzlized weakness. NEUROLOGICAL: No obvious deficits. DERMATOLOGIC: No rashes or suspicious lesions in exposed areas. PSYCHIATRIC: Alert, flat appropriate affect. - Patient Data Lab Results Last 24 hrs: Laboratory Results - last 24 hr 07/11/21 07/11/21 Range/Units 07:10 07:10 WBC 9.89 (5.00-10.00) 10^3/uL RBC 4.40 (3.80-5.50) 10^6/uL Hgb 13.0 (12.0-16.0) g/dL Hct 38.6 (37.0-47.0) % MCV 87.7 (82.0-92.0) fL MCH 29.5 (27.0-31.0) pg MCHC 33.7 (32.0-36.0) g/dL RDW 14.5 (11.5-14.5) % Plt Count 280 (150-400) 10^3/uL MPV 9.7 (7.4-10.4) fL Immature Gran % (Auto) 0.3 (0.0-5.0) % Neut % (Auto) 60.3 (50.0-70.0) % Lymph % (Auto) 26.8 (20.0-40.0) % [place] % (Auto) 11.4 H (2.0-8.0) % Eos % (Auto) 0.8 L (1.0-3.0) % Baso % (Auto) 0.4 (0.0-1.0) % Neut # (Auto) 5.96 (2.50-7.00) 10^3/uL Lymph # (Auto) 2.65 (1.00-4.00) 10^3/uL [place] # (Auto) 1.13 H (0.10-0.80) 10^3/uL Eos # (Auto) 0.08 L (0.10-0.30) 10^3/uL Baso # (Auto) 0.04 (0.00-0.10) 10^3/uL Immature Gran # (Auto) 0.03 (0.00-0.50) 10^3/uL Sodium 143 (136-145) mmol/L Potassium 3.7 (3.5-5.1) mmol/L Chloride 106 (98-107) mmol/L Carbon Dioxide 25.3 (21.0-32.0) mmol/L Anion Gap 15.4 H (5-15) mmol/L BUN 14 (7-18) mg/dL Creatinine 0.86 (0.51-1.17) mg/dL Est Cr Clr Drug Dosing 48.19 mL/min Estimated GFR (MDRD) > 60 mL/min Glucose 113 (70-140) mg/dL Calcium 9.2 (8.7-10.3) mg/dL Total Bilirubin 0.5 (0.2-1.0) mg/dL AST 16 (15-37) U/L ALT 25 (14-63) U/L Alkaline Phosphatase 109 (46-116) U/L Total Protein 6.1 L (6.4-8.2) g/dL Albumin 3.16 L (3.40-5.00) g/dL Triglycerides 61 (30-150) mg/dL Cholesterol 153 (100-200) mg/dL LDL Cholesterol, Calc 74 (0-100) mg/dL HDL Cholesterol 67 H (40-60) mg/dL Result Diagrams: 07/11/21 07:10 07/11/21 07:10 Sepsis Event Note - Evaluation Sepsis Screening Result: No Definite Risk - Focused Exam Vital Signs: Vital Signs Temp Pulse Pulse Pulse Resp BP BP 07/11/21 11:00 36.4 C 66 16 07/11/21 10:00 56 L 07/11/21 09:40 68 07/11/21 09:12 68 07/11/21 08:00 61 126/58 L 07/11/21 07:22 60 07/11/21 06:32 67 136/74 07/11/21 06:25 36.0 C L 69 20 07/11/21 05:58 73 211/87 H 07/11/21 05:51 72 186/95 H 07/11/21 05:05 68 134/73 07/11/21 04:00 68 137/64 07/11/21 03:00 62 18 153/61 H 07/11/21 02:31 60 07/11/21 02:18 66 07/11/21 02:05 75 07/11/21 01:31 63 07/11/21 01:20 71 172/66 H 07/11/21 01:03 65 185/74 H BP Pulse Ox 07/11/21 11:00 169/69 H 94 L 07/11/21 10:00 148/57 H 07/11/21 09:40 135/85 07/11/21 09:12 168/64 H 07/11/21 08:00 07/11/21 07:22 130/52 L 07/11/21 06:32 07/11/21 06:25 205/82 H 96 07/11/21 05:58 07/11/21 05:51 07/11/21 05:05 07/11/21 04:00 07/11/21 03:00 07/11/21 02:31 180/82 H 07/11/21 02:18 191/64 H 07/11/21 02:05 199/90 H 07/11/21 01:31 163/61 H 07/11/21 01:20 07/11/21 01:03 - Problem List Review Problem List Initiated/Reviewed/Updated: Yes - My Orders Last 24 Hours: My Active Orders 07/10/21 11:45 amLODIPine [Norvasc] 5 mg PO DAILY 07/10/21 17:45 Nicotine [Habitrol] 14 mg TRDERM DAILY 07/12/21 05:11 CBC WITH AUTO DIFF [HEME] AM CMP [COMPREHENSIVE METABOLIC PN,CMP] [CHEM] AM - Plan Plan:: HPI summary: 71 year old female admitted inpatient for hypertensive emergency/NSTEMI. She presented to the ED on 07/09/2021 with complaints of generalized weakness. She was ruled out for STEMI and dissection and admitted for medical management of hypertension. Unknown comorbid conditions. Patient reports she has not had medical care in years. 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 Repeat EKG improved NSR, possible left atrial enlargement, LV hypertrophy with repolarization abnormality, inferio r infarct age undetermined, rate 70. -Lab: WBC 10.74, Hgb 14.6, Hct 45.3, Plt 350, Na 144, K 3.6, Anion 15.7, BUN 14, cr 0.85, GFR >60, LFT unremarkable, initial trop HS 49.7 (neg), repeat 65 (elevated), BNP 111, COVID neg -Urine slightly cloudy, >300 protein, trace blood, mod epithelial cells, neg nitrite and rare bacteria -Nitro gtt to keep SBP <170 -Heparin gtt with bolus -ASA, atorvastatin, Lopressor -CTA: No evidence of aortic dissection -Repeats discussed with cardiology, no beds in [place], peoples hospital management in [place] [facility] course: 07/10/2021: No overnight concerns. Blood pressure overnight has been in the 160s-170s systolic. NO angina, dyspnea or edema. Afebrile. HR 50s. Patient reports she has not had these symptoms throughout. Suspect stress on heart related to uncontrolled BP. Heparin gtt discontinued. She continues to report generalized weakness and is unable to stand on her own. Troponin is downtrending. WBC 13 with 74.5% neutrophils, no evidence of obvious infection. Hgb 13, HCt 39.7, Na 141, K 3.8, anion 15.1, BUN 12, creatinine 0.79, GFR >60, A1c 5.6, LFT unremarkable. TSH 3.125. 07/11/2021: Nitro gtt weaned off last night with PRN labetalol order. BP avg 130-150, with some readings in the 160s systolic. Pulse 50s-60s. Patient received two doses overnight. She will be continued on oral amlodipine, lisinopril and metoprolol. Chase catheter will be removed today. Hospitalization problems and plan: # Hypertensive Emergency - Start lisinopril 10mg daily and amlodipine 5mg daily - PRN labetalol IV - Continue ASA 81mg daily - Continue atorvastatin 80mg daily - Continue metoprolol tartrate 50mg orally twice daily # Generalized weakness - Consideration of physical therapy eval if not improving next 24 hours as BP improves # Tobacco use - nicotine patch Chronic, stable conditions: # Hx stent placement: patient has had no medical management for years Hospitalization details: # FEN: oral intake; electrolytes stable; regular diet # PPX: ASA # Code status: Full code # Emergency contact: # Disposition: possible discharge to [facility] if weakness does not improve after three midnights with resolution of hypertension
[2021-07-11] MEDS: atorvaSTATin 40 MG Tab PO SCH (20:49)
[2021-07-11] MEDS: Sodium Chloride 0.9% 10 ML Syringe FLUSH PRN (22:20)
[2021-07-12 08:02] LABS: ANION GAP 11.8 mmol/L (5-15); CHLORIDE,CL 107 mmol/L (98-107); SODIUM,NA 144 mmol/L (136-145)
[2021-07-12] MEDS: Aspirin 81 MG Tab.Chew PO SCH (09:03)
[2021-07-12] MEDS: amLODIPine 5 MG Tab PO SCH (09:04)
[2021-07-12] MEDS: Metoprolol Tartrate 50 MG Tab PO SCH ×2 (09:04→20:40)
[2021-07-12] MEDS: Lisinopril 10 MG Tab PO SCH (09:05)
[2021-07-12] MEDS: Nicotine 14 MG/24 Hr Patch TRDERM SCH (09:05)
--- NOTE | 2021-07-12 12:41 | PCM.PN ---
- General Info Date of Service: 07/12/21 Functional Status: Reports: Pain Controlled, Tolerating Diet, Ambulating, Urinating. Denies: New Symptoms - Review of Systems General: Reports: Weakness, Fatigue. Denies: Fever, Chills HEENT: Reports: No Symptoms Pulmonary: Reports: No Symptoms Cardiovascular: Reports: Edema (chronic, unchanged L>R). Denies: Chest Pain, Dyspnea on Exertion Gastrointestinal: Reports: No Symptoms Genitourinary: Reports: No Symptoms. Denies: Retention (voiding after pedro removed yesterday) Skin: Reports: No Symptoms Neurological: Reports: No Symptoms Psychiatric: Reports: No Symptoms - Patient Data Vitals - Most Recent: Last Vital Signs Temp 96.7 F L 07/12/21 06:43 Pulse 64 07/12/21 09:04 Resp 20 07/12/21 06:43 BP 162/75 H 07/12/21 09:05 Pulse Ox 96 07/12/21 06:43 Weight - Most Recent: 180 lb I&O - Last 24 Hours: Intake & Output 07/11/21 07/12/21 07/12/21 22:59 06:59 14:59 Intake Total 340 200 Output Total 550 Balance -210 200 Lab Results Last 24 Hours: Laboratory Results - last 24 hr 07/12/21 07/12/21 Range/Units 07:12 07:12 WBC 8.45 (5.00-10.00) 10^3/uL RBC 4.29 (3.80-5.50) 10^6/uL Hgb 12.5 (12.0-16.0) g/dL Hct 37.9 (37.0-47.0) % MCV 88.3 (82.0-92.0) fL MCH 29.1 (27.0-31.0) pg MCHC 33.0 (32.0-36.0) g/dL RDW 15.1 H (11.5-14.5) % Plt Count 288 (150-400) 10^3/uL MPV 9.8 (7.4-10.4) fL Immature Gran % (Auto) 0.1 (0.0-5.0) % Neut % (Auto) 50.3 (50.0-70.0) % Lymph % (Auto) 34.7 (20.0-40.0) % [place] % (Auto) 11.6 H (2.0-8.0) % Eos % (Auto) 2.6 (1.0-3.0) % Baso % (Auto) 0.7 (0.0-1.0) % Neut # (Auto) 4.25 (2.50-7.00) 10^3/uL Lymph # (Auto) 2.93 (1.00-4.00) 10^3/uL [place] # (Auto) 0.98 H (0.10-0.80) 10^3/uL Eos # (Auto) 0.22 (0.10-0.30) 10^3/uL Baso # (Auto) 0.06 (0.00-0.10) 10^3/uL Immature Gran # (Auto) 0.01 (0.00-0.50) 10^3/uL Sodium 144 (136-145) mmol/L Potassium 4.2 (3.5-5.1) mmol/L Chloride 107 (98-107) mmol/L Carbon Dioxide 29.4 (21.0-32.0) mmol/L Anion Gap 11.8 (5-15) mmol/L BUN 13 (7-18) mg/dL Creatinine 0.79 (0.51-1.17) mg/dL Est Cr Clr Drug Dosing 52.46 mL/min Estimated GFR (MDRD) > 60 mL/min Glucose 99 (70-140) mg/dL Calcium 9.1 (8.7-10.3) mg/dL Total Bilirubin 0.4 (0.2-1.0) mg/dL AST 16 (15-37) U/L ALT 23 (14-63) U/L Alkaline Phosphatase 91 (46-116) U/L Total Protein 5.7 L (6.4-8.2) g/dL Albumin 2.80 L (3.40-5.00) g/dL Med Orders - Current: Current Medications Acetaminophen (Acetaminophen 325 Mg Tab) 650 mg PO Q4H PRN PRN Reason: Pain Last Admin: 07/11/21 22:20 Dose: 650 mg Documented by: Amlodipine Besylate (Amlodipine 5 Mg Tab) 5 mg PO DAILY YADIRA Last Admin: 07/12/21 09:04 Dose: 5 mg Documented by: Aspirin (Aspirin 81 Mg Tab.Chew) 81 mg PO WITHBREAKFAST [facility] Last Admin: 07/12/21 09:03 Dose: 81 mg Documented by: Atorvastatin Calcium (Atorvastatin 40 Mg Tab) 80 mg PO BEDTIME [facility] Last Admin: 07/11/21 20:49 Dose: 80 mg Documented by: Atropine Sulfate (Atropine 0.1 Mg/Ml 10 Ml Syringe) 0 mg IVPUSH ASDIRECTED PRN PRN Reason: Heart. Epinephrine HCl (Epinephrine 1:10,000 1 Mg/10 Ml Syringe) 1 mg IVPUSH ASDIRECTED PRN PRN Reason: Heart. Labetalol HCl (Labetalol 100 Mg/20 Ml Mdv) 5 mg IVPUSH Q1H PRN PRN Reason: Hypertension Last Admin: 07/11/21 18:43 Dose: 5 mg Documented by: Lidocaine HCl (Lidocaine 2% 100 Mg/5 Ml Syringe) 0 mg IVPUSH ASDIRECTED PRN PRN Reason: Heart. Lisinopril (Lisinopril 10 Mg Tab) 10 mg PO DAILY [facility] Last Admin: 07/12/21 09:05 Dose: 10 mg Documented by: Melatonin (Melatonin 3 Mg Tab) 3 mg PO BEDTIME PRN PRN Reason: Insomnia Last Admin: 07/11/21 22:19 Dose: 3 mg Documented by: Metoprolol Tartrate (Metoprolol Tartrate 50 Mg Tab) 50 mg PO BID [facility] Last Admin: 07/12/21 09:04 Dose: 50 mg Documented by: Nicotine (Nicotine 14 Mg/24 Hr Patch) 14 mg TRDERM DAILY [facility] Last Admin: 07/12/21 09:05 Dose: 14 mg Documented by: Nitroglycerin (Nitroglycerin 0.4 Mg Tab.Sl) 0.4 mg SL ASDIRECTED PRN PRN Reason: Heart. Sodium Chloride (Sodium Chloride 0.9% 10 Ml Syringe) 10 ml FLUSH Q8HR PRN PRN Reason: IV use Last Admin: 07/11/21 22:20 Dose: 10 ml Documented by: Discontinued Medications Aspirin (Aspirin 81 Mg Tab.Chew) 324 mg PO ONETIME ONE Stop: 07/09/21 16:02 Last Admin: 07/09/21 16:18 Dose: 324 mg Documented by: Heparin Sodium (Porcine) (Heparin Sodium 5,000 Units/Ml Vial) 5,000 units IVPUSH ONETIME ONE Stop: 07/09/21 16:06 Last Admin: 07/09/21 16:23 Dose: 5,000 units Documented by: Heparin Sodium/Dextrose () 250 mls @ 0.282 mls/hr IV TITRATE YADIRA; Protocol Nitroglycerin/Dextrose (Nitroglycerin 50 Mg/D5w 250 Ml) 50 mg in 250 mls @ 3 mls/hr IV TITRATE YADIRA Last Infusion: 07/10/21 19:50 Dose: 10 mcg/min, 3 mls/hr Documented by: Sodium Chloride (Normal Saline) 50 mls @ 200 mls/min IV ASDIRECTED YADIRA Last Admin: 07/09/21 18:14 Dose: 200 mls/min Documented by: Heparin Sodium/Dextrose () 250 mls @ 9.798 mls/hr IV TITRATE YADIRA; Protocol Stop: 07/10/21 17:30 Last Titration: 07/10/21 00:48 Dose: 9 units/kg/hr, 7.348 mls/hr Documented by: Iopamidol (Iopamidol 755 Mg/Ml 75 Ml Bottle) 75 ml IVPUSH ONETIME ONE Stop: 07/09/21 17:23 Last Admin: 07/09/21 18:14 Dose: 75 ml Documented by: Metoprolol Tartrate (Metoprolol Tartrate 5 Mg/5 Ml Sdv) 5 mg IVPUSH ONETIME ONE Stop: 07/09/21 15:12 Last Admin: 07/09/21 15:35 Dose: 5 mg Documented by: Nitroglycerin (Nitroglycerin 2% Oint 1 Gm Ud Packet) 1 gm TOP ONETIME ONE Stop: 07/09/21 14:37 Last Admin: 07/09/21 14:40 Dose: 1 gm Documented by: Sodium Chloride (Sodium Chloride 0.9% 10 Ml Syringe) 10 ml FLUSH Q8HR PRN PRN Reason: keep vein open - Exam Quality Assessment: No: Supplemental Oxygen, Urine Catheter Urinary Catheter Total Time: 1Days 17Hours General: Alert, Oriented, Cooperative, No Acute Distress HEENT: Pupils Equal, Pupils Reactive, Mucous Membr. Moist/[place] Neck: Supple, Trachea Midline Lungs: Clear to Auscultation, Normal Respiratory Effort Cardiovascular: Regular Rate, Regular Rhythm, No Murmurs GI/Abdominal Exam: Normal Bowel Sounds, Soft, Non-Tender, No Distention (Female) Exam: Deferred Back Exam: Normal Inspection, Full Range of Motion Extremities: Normal Inspection, Normal Range of Motion, Non-Tender, Normal Capillary Refill, Pedal Edema (non-pitting) Peripheral Pulses: 2+: Dorsalis Pedis (L), Dorsalis Pedis (R) Skin: Warm, Dry, Intact Neurological: No New Focal Deficit Psy/Mental Status: Alert, Normal Affect, Normal Mood, Other (affect somewhat flat) - Patient Data Lab Results Last 24 hrs: Laboratory Results - last 24 hr 07/12/21 07/12/21 Range/Units 07:12 07:12 WBC 8.45 (5.00-10.00) 10^3/uL RBC 4.29 (3.80-5.50) 10^6/uL Hgb 12.5 (12.0-16.0) g/dL Hct 37.9 (37.0-47.0) % MCV 88.3 (82.0-92.0) fL MCH 29.1 (27.0-31.0) pg MCHC 33.0 (32.0-36.0) g/dL RDW 15.1 H (11.5-14.5) % Plt Count 288 (150-400) 10^3/uL MPV 9.8 (7.4-10.4) fL Immature Gran % (Auto) 0.1 (0.0-5.0) % Neut % (Auto) 50.3 (50.0-70.0) % Lymph % (Auto) 34.7 (20.0-40.0) % [place] % (Auto) 11.6 H (2.0-8.0) % Eos % (Auto) 2.6 (1.0-3.0) % Baso % (Auto) 0.7 (0.0-1.0) % Neut # (Auto) 4.25 (2.50-7.00) 10^3/uL Lymph # (Auto) 2.93 (1.00-4.00) 10^3/uL [place] # (Auto) 0.98 H (0.10-0.80) 10^3/uL Eos # (Auto) 0.22 (0.10-0.30) 10^3/uL Baso # (Auto) 0.06 (0.00-0.10) 10^3/uL Immature Gran # (Auto) 0.01 (0.00-0.50) 10^3/uL Sodium 144 (136-145) mmol/L Potassium 4.2 (3.5-5.1) mmol/L Chloride 107 (98-107) mmol/L Carbon Dioxide 29.4 (21.0-32.0) mmol/L Anion Gap 11.8 (5-15) mmol/L BUN 13 (7-18) mg/dL Creatinine 0.79 (0.51-1.17) mg/dL Est Cr Clr Drug Dosing 52.46 mL/min Estimated GFR (MDRD) > 60 mL/min Glucose 99 (70-140) mg/dL Calcium 9.1 (8.7-10.3) mg/dL Total Bilirubin 0.4 (0.2-1.0) mg/dL AST 16 (15-37) U/L ALT 23 (14-63) U/L Alkaline Phosphatase 91 (46-116) U/L Total Protein 5.7 L (6.4-8.2) g/dL Albumin 2.80 L (3.40-5.00) g/dL Result Diagrams: 07/12/21 07:12 07/12/21 07:12 Sepsis Event Note - Evaluation Sepsis Screening Result: No Definite Risk - Focused Exam Vital Signs: Vital Signs Temp Pulse Pulse Resp BP BP Pulse Ox 07/12/21 09:05 162/75 H 07/12/21 09:04 64 162/75 H 07/12/21 06:43 96.7 F L 63 20 165/75 H 96 07/12/21 03:00 97.3 F 63 18 169/74 H 94 L - Problem List Review Problem List Initiated/Reviewed/Updated: Yes - My Orders Last 24 Hours: My Active Orders 07/12/21 11:58 Consult to Case Management/Production Mechanic [CONS] Routine 07/12/21 12:00 PT Evaluation and Treatment [CONS] Routine - Plan Plan:: HPI summary: Madhuri is a 71 yF who presented to the ED for complaints of weakness, pain, numbness and tingling. Patient has not been seen in clinic since 2015. Hx of [place] with cardiac stents placed x3 in 2009. She has not taken her antihypertensive medications and statin for the past 5 years due to lack of financial resources. She was ruled out for STEMI and aortic dissection, subse quently admitted for medical management of hypertension. 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 Repeat EKG improved NSR, possible left atrial enlargement, LV hypertrophy with repolarization abnormality, inferior infarct age undetermined, rate 70. -Lab: WBC 10.74, Hgb 14.6, Hct 45.3, Plt 350, Na 144, K 3.6, Anion 15.7, BUN 14, cr 0.85, GFR >60, LFT unremarkable, initial trop HS 49.7 (neg), repeat 65 (elevated), BNP 111, COVID neg -Urine slightly cloudy, >300 protein, trace blood, mod epithelial cells, neg nitrite and rare bacteria -Nitro gtt to keep SBP <170 -Heparin gtt with bolus -ASA, atorvastatin, Lopressor -CTA: No evidence of aortic dissection -ER repeated discussed with cardiology, no beds in [place], medial management in [place] recommended. Patient was stared on heparin gtt and nitro gtt. Hospital course: 07/10/2021: No overnight concerns. Blood pressure overnight has been in the 160s-170s systolic. NO angina, dyspnea or edema. Afebrile. HR 50s. Patient reports she has not had these symptoms throughout. Suspect stress on heart related to uncontrolled BP. Heparin gtt discontinued. She continues to report generalized weakness and is unable to stand on her own. Troponin is downtrendin g. WBC 13 with 74.5% neutrophils, no evidence of obvious infection. Hgb 13, HCt 39.7, Na 141, K 3.8, anion 15.1, BUN 12, creatinine 0.79, GFR >60, A1c 5.6, LFT unremarkable. TSH 3.125. 07/11/2021: Nitro gtt weaned off last night with PRN labetalol order. BP avg 130-150, with some readings in the 160s systolic. Pulse 50s-60s. Patient received two doses overnight. She will be continued on oral amlodipine, lisinopril and metoprolol. Pedro catheter will be removed today. 07/12/21: Patient denies CP, SOB, Nausea, diaphoresis. Continues to feel somewhat weak. Labs overall unremarkable. Blood pressure 162/75 this morning. Will continue lisinopril 10mg PO daily, amlodipine 5mg PO daily and metoprolol tartrate 50mg PO BID. donor services specialist and PT consults ordered today. Consider possible swing bed stay for strengthening due to reported weakness. Hospitalization problems and plan: # Hypertensive Emergency; improving - Continue lisinopril 10mg daily and amlodipine 5mg daily - PRN labetalol IV for SBP > 180 - Continue ASA 81mg daily - Continue atorvastatin 80mg daily - Continue metoprolol tartrate 50mg orally twice daily # Generalized weakness - PT eval and treat # Tobacco use - nicotine patch Chronic, stable conditions: # Hx [place] # Hx of cardiac stents x 3 in 2009 Hospitalization details: # FEN: oral intake; electrolytes stable; regular diet # PPX: ASA # Code status: Full code # Emergency contact: Lupe Hobbs [phone] # Disposition: Will maintain inpatient status today to allow for psychotherapist social worker consultation regarding assistance with financial resources and discharge planning. PT to evaluate today for possible swing bed stay. Possible discharge tomorrow vs transfer to swing bed status if meets criteria.
[2021-07-12] MEDS: Labetalol 100 MG/20 ML MDV IVPUSH PRN ×2 (19:14→20:41)
[2021-07-12] MEDS: atorvaSTATin 40 MG Tab PO SCH (20:40)
[2021-07-12] MEDS: Sodium Chloride 0.9% 10 ML Syringe FLUSH PRN (20:50)
[2021-07-12] MEDS: Melatonin 3 MG Tab PO PRN (22:05)
[2021-07-12] MEDS: Acetaminophen 325 MG Tab PO PRN (22:05)
--- NOTE | 2021-07-13 07:20 | PT ---
PATIENT NAME: JUDY COHN MEDICAL RECORD NUMBER: : [id number] DATE: 07/12/2021 REFERRING PHYSICIAN: Ariana Monte NP ONSET DATE: 07/09/2021 DIAGNOSIS: [id number] myocardial infarction, general weakness. SUBJECTIVE: The patient was admitted to an inpatient status after she arrived at the ER on the night of 07/09/2021 due to severe weakness. The patient said that prior to that particular day, she had been independent within her home and walked across the street to the post office every day. She continues to drive on her own and does all of her own grocery shopping. She said that she felt so weak she could not get up from her couch and required the help of her sister who lives across the street. Her sister is the one who called the ambulance to admit her into the ER. The patient admits that the last few days she has not been up and moving much at all. However, today she is feeling significantly improved. She is looking forward to doing therapy today to see what her capacity is, but she would like to return home as soon as possible. She tells me after we complete therapy today that she feels good enough to go home for sure. The distance that we walked she says is far greater than anything that she has done in the recent past at one time. The patient denies pain at this time as well as shortness of breath. OBJECTIVE: TREATMENT TIME: Time in 1435. Time out 1455. TREATMENT: Consisted of physical therapy initial evaluation, low complex. OBSERVATION: The patient is up in chair. The patient seems very willing to get up as she starts to stand immediately when I tell her our plan is to go for a walk. PAIN: The patient denies pain. PALPATION: Palpation is negative. RANGE OF MOTION: General range of motion is grossly within functional limits of upper and lower extremities. MANUAL MUSCLE TEST: Within normal limits bilaterally of lower extremities in all musculature. SPECIAL TESTS: [place], eyes closed is 10 seconds without deviation. Tinetti Balance Assessment Score of 26/28. NEUROLOGIC FINDINGS: Grossly normal. ASSESSMENT: Impression: The patient was able to ambulate x500 feet continuous, no assistive device with standby assist x1. The patient was on room air with sats greater than 96%. Heart rate was in the low 70s during this walk. The patient is functional in all capacities right now. I do feel that she will be safe to return home and is not a candidate for swing bed admission. PLAN: No further therapy is recommended at this point as the patient is free to discharge in my opinion tomorrow.
[2021-07-13] MEDS: Lisinopril 10 MG Tab PO SCH (08:48)
[2021-07-13] MEDS: Aspirin 81 MG Tab.Chew PO SCH (08:48)
[2021-07-13] MEDS: amLODIPine 5 MG Tab PO SCH (08:48)
[2021-07-13] MEDS: Nicotine 14 MG/24 Hr Patch TRDERM SCH (08:49)
[2021-07-13] MEDS: Metoprolol Tartrate 50 MG Tab PO SCH (08:49)
--- NOTE | 2021-07-13 10:25 | PCM.DCSUM1 ---
Discharge Summary - Hospital Course Free Text/Narrative:: Date of admission: 07/09/21 Date of discharge: 07/13/21 Admission diagnoses: # Hypertensive Emergency # Generalized weakness # Tobacco use Discharge diagnoses: # Hyperlipidemia # Hx WV # Hx of cardiac stents x 3 in 2009 HPI summary: Madhuri is a 71 yF who presented to the ED for complaints of weakness, pain, numbness and tingling. Patient has not been seen in clinic since 2015. Hx of [place]V with cardiac stents placed x3 in 2009. She has not taken her antihypertensive medications and statin for the past 5 years due to lack of financial resources. She was ruled out for STEMI and aortic dissection, subsequently admitted for medical management of hypertension. ED course: -VS: T 97.7, HR 67 RR 20 BP 199/103 95% RA -EKG: SR with occ PVC, possible left atrial enlargement, LV hypertrophy with repolarization abnormality, inferior infarct possibly acute; rate 82; called to cardiology requested repeat trop and BNP to R/O heart failure and possible STEMI, cardiology also concerned about dissection; recommended holding CTA until after repeats for possibility of hemodialysis lab technician. Repeat EKG improved NSR, possible left atrial enlargement, LV hypertrophy with repolarization abnormality, inferior infarct age undetermined, rate 70. -Lab: WBC 10.74, Hgb 14.6, Hct 45.3, Plt 350, Na 144, K 3.6, Anion 15.7, BUN 14, cr 0.85, GFR >60, LFT unremarkable, initial trop HS 49.7 (neg), repeat 65 (elevated), BNP 111, COVID neg -Urine slightly cloudy, >300 protein, trace blood, mod epithelial cells, neg nitrite and rare bacteria -Nitro gtt to keep SBP <170 -Heparin gtt with bolus -ASA, atorvastatin, Lopressor -CTA: No evidence of aortic dissection -ER repeated discussed with cardiology, no beds in [place], medial management in [place] recommended. Patient was stared on heparin gtt and nitro gtt. Hospital course: 07/10/2021: No overnight concerns. Blood pressure overnight has been in the 160s-170s systolic. NO angina, dyspnea or edema. Afebrile. HR 50s. Patient reports she has not had these symptoms throughout. Suspect stress on heart related to uncontrolled BP. Heparin gtt discontinued. She continues to report generalized weakness and is unable to stand on her own. Troponin is downtrending. WBC 13 with 74.5% neutrophils, no evidence of obvious infection. Hgb 13, HCt 39.7, Na 141, K 3.8, anion 15.1, BUN 12, creatinine 0.79, GFR >60, A1c 5.6, LFT unremarkable. TSH 3.125. 07/11/2021: Nitro gtt weaned off last night with PRN labetalol order. BP avg 130-150, with some readings in the 160s systolic. Pulse 50s-60s. Patient received two doses overnight. She will be continued on oral amlodipine, lisinopril and metoprolol. Chase catheter will be removed today. 07/12/21: Patient denies CP, SOB, Nausea, diaphoresis. Continues to feel somewhat weak. Labs overall unremarkable. Blood pressure 162/75 this morning. Will continue lisinopril 10mg PO daily, amlodipine 5mg PO daily and metoprolol tartrate 50mg PO BID. field services manager and PT consults ordered today. Consider possible swing bed stay for strengthening due to reported weakness. 07/13/21: Patient reports feeling better today, stronger. She reports diarrhea 3-4 times per day for the past 3 weeks or so. Blood pressure 167/76 this morning, then 140s systolic before morning anti-hypertensives. No additional labs this morning as no concerns yesterday. PT eval yesterday indicated patient is ambulating well independently without assistive device and PT recommended discharge home rather than swing bed stay. field services manager assisting with financial resources for patient to help her pay for her medications. Discharge and follow-up recommendations: - Discharge to home per self care; check blood pressure twice daily and record results for review at follow-up appointment on Monday - New medications at discharge: - Atorvastatin 80mg PO HS daily - Lisinopril 10mg PO daily - Amlodipine 5mg PO daily - Metoprolol tartrate 50mg PO BID - Immodium PRN diarrhea as directed - Follow-up at [facility] with Ariana Monte APRN, CNP on 07/16/21 at 3:00. Orders placed for repeat echocardiogram at [facility] in the next 1-2 weeks as scheduling allows. Recommend patient consider smoking cessation. - Discharge Data Discharge Date: 07/13/21 Discharge Disposition: Home, Self-Care 01 Condition: Good - Referral to Home Health Primary Care Physician: Muna Kimbrough MD - Patient Summary/Data Consults: Consultations 07/12/21 11:58 Consult to Case Management/Wired Music Operator [CONS] Routine 07/12/21 12:00 PT Evaluation and Treatment [CONS] Routine - Patient Instructions Diet: Heart Healthy Diet Driving: Do Not Drive Showering/Bathing: May Shower Other/Special Instructions: Recommend smoking cessation. Call [place] QUIT line for options including patches, gum..... - Discharge Plan *PRESCRIPTION DRUG MONITORING PROGRAM REVIEWED*: Not Applicable *COPY OF PRESCRIPTION DRUG MONITORING REPORT IN PATIENT ANGELA: Not Applicable Home Medications: Home Meds Acetaminophen [Tylenol] 650 mg PO Q4H PRN tablet 07/13/21 [Rx] Aspirin 81 mg PO WITHBREAKFAST tab.chew 07/13/21 [Rx] Metoprolol Tartrate [Lopressor] 50 mg PO BID tablet 07/13/21 [Rx] amLODIPine [Norvasc] 5 mg PO DAILY tablet 07/13/21 [Rx] atorvaSTATin [Lipitor] 80 mg PO BEDTIME tablet 07/13/21 [Rx] lisinopriL [Prinivil] 10 mg PO DAILY tablet 07/13/21 [Rx] Oxygen Therapy Mode: Room Air Referrals: Ariana Monte CDL BULK DRIVER [Nurse Practitioner] - 07/16/21 3:00 pm (Follow-up on Monday, July 16 at [facility] with Ariana Monte APRN, CNP at 3pm. Please bring blood pressure results from discharge until time of appointment for review. ) - Discharge Summary/Plan Comment DC Time >30 min.: Yes Total # of Minutes for Discharge Time: 35 - General Info Date of Service: 07/13/21 Functional Status: Reports: Pain Controlled, Tolerating Diet, Ambulating, Ur inating. Denies: New Symptoms - Review of Systems General: Reports: No Symptoms. Denies: Fever, Weakness, Fatigue, Chills HEENT: Reports: No Symptoms. Denies: Headaches, Visual Changes Pulmonary: Reports: No Symptoms Cardiovascular: Reports: No Symptoms Gastrointestinal: Reports: Diarrhea (3-4 loose stools per day for the past 3 weeks per patient) Genitourinary: Reports: No Symptoms Musculoskeletal: Reports: No Symptoms Skin: Reports: No Symptoms Neurological: Reports: No Symptoms Psychiatric: Reports: No Symptoms - Patient Data Vitals - Most Recent: Last Vital Signs Temp 97.1 F 07/13/21 07:00 Pulse 61 07/13/21 08:49 Resp 16 07/13/21 07:00 BP 146/66 H 07/13/21 08:49 Pulse Ox 98 07/13/21 07:00 Weight - Most Recent: 180 lb I&O - Last 24 hours: Intake & Output 07/12/21 07/13/21 07/13/21 22:59 06:59 14:59 Intake Total 350 200 Output Total 600 1200 Balance -250 -1000 Med Orders - Current: Current Medications Acetaminophen (Acetaminophen 325 Mg Tab) 650 mg PO Q4H PRN PRN Reason: Pain Last Admin: 07/12/21 22:05 Dose: 650 mg Documented by: Amlodipine Besylate (Amlodipine 5 Mg Tab) 5 mg PO DAILY [facility] Last Admin: 07/13/21 08:48 Dose: 5 mg Documented by: Aspirin (Aspirin 81 Mg Tab.Chew) 81 mg PO WITHBREAKFAST [facility] Last Admin: 07/13/21 08:48 Dose: 81 mg Documented by: Atorvastatin Calcium (Atorvastatin 40 Mg Tab) 80 mg PO BEDTIME [facility] Last Admin: 07/12/21 20:40 Dose: 80 mg Documented by: Atropine Sulfate (Atropine 0.1 Mg/Ml 10 Ml Syringe) 0 mg IVPUSH ASDIRECTED PRN PRN Reason: Heart. Epinephrine HCl (Epinephrine 1:10,000 1 Mg/10 Ml Syringe) 1 mg IVPUSH ASDIRECTED PRN PRN Reason: Heart. Labetalol HCl (Labetalol 100 Mg/20 Ml Mdv) 5 mg IVPUSH Q1H PRN PRN Reason: Hypertension Last Admin: 07/12/21 20:41 Dose: 5 mg Documented by: Lidocaine HCl (Lidocaine 2% 100 Mg/5 Ml Syringe) 0 mg IVPUSH ASDIRECTED PRN PRN Reason: Heart. Lisinopril (Lisinopril 10 Mg Tab) 10 mg PO DAILY [facility] Last Admin: 07/13/21 08:48 Dose: 10 mg Documented by: Melatonin (Melatonin 3 Mg Tab) 3 mg PO BEDTIME PRN PRN Reason: Insomnia Last Admin: 07/12/21 22:05 Dose: 3 mg Documented by: Metoprolol Tartrate (Metoprolol Tartrate 50 Mg Tab) 50 mg PO BID [facility] Last Admin: 07/13/21 08:49 Dose: 50 mg Documented by: Nicotine (Nicotine 14 Mg/24 Hr Patch) 14 mg TRDERM DAILY [facility] Last Admin: 07/13/21 08:49 Dose: 14 mg Documented by: Nitroglycerin (Nitroglycerin 0.4 Mg Tab.Sl) 0.4 mg SL ASDIRECTED PRN PRN Reason: Heart. Sodium Chloride (Sodium Chloride 0.9% 10 Ml Syringe) 10 ml FLUSH Q8HR PRN PRN Reason: IV use Last Admin: 07/12/21 20:50 Dose: 10 ml Documented by: Discontinued Medications Aspirin (Aspirin 81 Mg Tab.Chew) 324 mg PO ONETIME ONE Stop: 07/09/21 16:02 Last Admin: 07/09/21 16:18 Dose: 324 mg Documented by: Heparin Sodium (Porcine) (Heparin Sodium 5,000 Units/Ml Vial) 5,000 units IVPUSH ONETIME ONE Stop: 07/09/21 16:06 Last Admin: 07/09/21 16:23 Dose: 5,000 units Documented by: Heparin Sodium/Dextrose () 250 mls @ 0.282 mls/hr IV TITRATE YADIRA; Protocol Nitroglycerin/Dextrose (Nitroglycerin 50 Mg/D5w 250 Ml) 50 mg in 250 mls @ 3 mls/hr IV TITRATE YADIRA Last Infusion: 07/10/21 19:50 Dose: 10 mcg/min, 3 mls/hr Documented by: Sodium Chloride (Normal Saline) 50 mls @ 200 mls/min IV ASDIRECTED YADIRA Last Admin: 07/09/21 18:14 Dose: 200 mls/min Documented by: Heparin Sodium/Dextrose () 250 mls @ 9.798 mls/hr IV TITRATE YADIRA; Protocol Stop: 07/10/21 17:30 Last Titration: 07/10/21 00:48 Dose: 9 units/kg/hr, 7.348 mls/hr Documented by: Iopamidol (Iopamidol 755 Mg/Ml 75 Ml Bottle) 75 ml IVPUSH ONETIME ONE Stop: 07/09/21 17:23 Last Admin: 07/09/21 18:14 Dose: 75 ml Documented by: Metoprolol Tartrate (Metoprolol Tartrate 5 Mg/5 Ml Sdv) 5 mg IVPUSH ONETIME ONE Stop: 07/09/21 15:12 Last Admin: 07/09/21 15:35 Dose: 5 mg Documented by: Nitroglycerin (Nitroglycerin 2% Oint 1 Gm Ud Packet) 1 gm TOP ONETIME ONE Stop: 07/09/21 14:37 Last Admin: 07/09/21 14:40 Dose: 1 gm Documented by: Sodium Chloride (Sodium Chloride 0.9% 10 Ml Syringe) 10 ml FLUSH Q8HR PRN PRN Reason: keep vein open - Exam Quality Assessment: Denies: Supplemental Oxygen General: Reports: Alert, Oriented, Cooperative, No Acute Distress HEENT: Reports: Pupils Equal, Pupils Reactive, Mucous Membr. Moist/Carnuel Neck: Reports: Supple, Trachea Midline Lungs: Reports: Clear to Auscultation, Normal Respiratory Effort Cardiovascular: Reports: Regular Rate, Regular Rhythm, No Murmurs GI/Abdominal Exam: Normal Bowel Sounds, Soft, Non-Tender, No Distention (Female) Exam: Deferred Rectal (Female) Exam: Deferred Back Exam: Reports: Normal Inspection, Full Range of Motion Extremities: Normal Inspection, Normal Range of Motion, Non-Tender, No Pedal Edema, Normal Capillary Refill Skin: Reports: Warm, Dry, Intact Neurological: Reports: No New Focal Deficit Psy/Mental Status: Reports: Alert, Normal Affect, Normal Mood
== END 2021-07-13 11:50 | disposition home or self-care (01) | DRG 305 ==
LOC: KA.ED 13:58 → KA.MS 19:28
PROVIDERS: ADMIT Physician Assistant Medical; ATTEND Family Medicine
DX: I16.1 Hypertensive emergency (principal); I16.9 Hypertensive crisis, unspecified; I10 Essential (primary) hypertension; H54.7 Unspecified visual loss; Z72.0 Tobacco use; F17.200 Nicotine dependence, unspecified, uncomplicated; R94.31 Abnormal electrocardiogram [ECG] [EKG]; Z20.822 Contact with and (suspected) exposure to COVID-19; I25.10 Atherosclerotic heart disease of native coronary artery without angina pectoris; R53.1 Weakness; Z88.8 Allergy status to other drugs, medicaments and biological substances; I25.2 Old myocardial infarction; Z95.5 Presence of coronary angioplasty implant and graft; Z90.710 Acquired absence of both cervix and uterus
CPT/HCPCS: 36415; 51702; 70450; 71045; 71275; 80053; 83880; 84484 ×3; 85025; 93005 ×2; 96366; 96375; 99285; A9270 ×2; J1644 ×2; J3490; Q9967; 80061; 81001; 83036; 84443; 85730; 97161-GP; 99284; U0002

== ENCOUNTER 2021-08-01 13:33 | Inpatient (IN) | payer MEDICARE ==
[2021-08-01] MEDS ORDERED: Aspirin 81 MG Tab.Chew ONE (14:11)
[2021-08-01] MEDS ORDERED: Aspirin 81 MG Tab.Chew PO ONE (14:14)
--- NOTE | 2021-08-01 14:38 | EDM.PDOC ---
ED HPI GENERAL MEDICAL PROBLEM - General Chief Complaint: Neurological Problem Stated Complaint: weakness Time Seen by Provider: 08/01/21 13:33 Source of Information: Reports: Patient History Limitations: Reports: No Limitations - History of Present Illness INITIAL COMMENTS - FREE TEXT/NARRATIVE: 71-year-old female presents to the emergency room brought in by family member for concerns of weakness and possible elevated blood pressure. Madhuri was recently discharged from the hospital on 07/13/2021 for hypertensive emergency generalized weakness. She has a history of [place]V with cardiac stents with 3 placed in 2009. She had been off her blood pressure medications for approximately 5years due to her financial resources. She is a current and active smoker. She was restarted on senna Prill 10 mg daily amlodipine 5 mg p.o. daily metoprolol tartrate Cash 50 mg p.o. twice daily she is also restarted on her at trolled the statin 80 mg p.o. at night. Was feeling better blood pressures were well controlled. Today she was seen by her sister who had concerns because she was having difficulty getting up from chair. She took her blood pressure with a home machine that read her systolic was over 200 and diastolic over 100. She was brought here for further evaluation. Currently in the emergency room she complains of no pain or discomfort no chest pain. She notices some generalized weakness in her lower extremities. She is nontoxic-appearing her blood pressures quite good she did get an EKG immediately suggest possible acute [place]V inferior infarct and possibly previous anterior infarct age undetermined. She was given 4 baby aspirin to chew. Quick neurological exam shows some difficulty raising her lower legs on both sides slightly worse on the right greater than the left. She is able to respond to to my questions as well as orders given for movements. Onset: Unknown/Unsure Duration: Constant Location: Reports: Generalized Quality: Denies: Ache, Burning, Dull, Pressure, Sharp, Stabbing, Throbbing Severity: Moderate Improves with: Reports: None Worsens with: Reports: Movement Associated Symptoms: Reports: Shortness of Breath, Weakness. Denies: Chest Pain, Diaphoresis, Fever/Chills, Headaches, Nausea/Vomiting, Seizure - Related Data Allergies Allergy/AdvReac Type Severity Reaction Status Date / Time thimerosal Allergy Facial Verified 08/01/21 14:33 Swelling Home Meds: Home Meds Acetaminophen [Tylenol] 650 mg PO Q4H PRN tablet 07/13/21 [Rx] Aspirin 81 mg PO WITHBREAKFAST tab.chew 07/13/21 [Rx] Metoprolol Tartrate [Lopressor] 50 mg PO BID tablet 07/13/21 [Rx] amLODIPine [Norvasc] 5 mg PO DAILY tablet 07/13/21 [Rx] atorvaSTATin [Lipitor] 80 mg PO BEDTIME tablet 07/13/21 [Rx] lisinopriL [Prinivil] 10 mg PO DAILY tablet 07/13/21 [Rx] Past Medical History HEENT History: Reports: Impaired Vision Cardiovascular History: Reports: Hypertension, [place], Stents Respiratory History: Reports: Bronchitis, Recurrent HOSPITAL 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 SERVICE 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 History: Reports: Musculoskeletal History: Reports: None Neurological History: Reports: None Psychiatric History: Reports: None Endocrine/Metabolic History: Reports: None Hematologic History: Reports: None Immunologic History: Reports: None Oncologic (Cancer) History: Reports: None Dermatologic History: Reports: None - Infectious Disease History Infectious Disease History: Reports: Chicken Pox, Measles, Mumps, Other (See Below) Other Infectious Disease History: Hepatitis unknown type - Past Surgical History Cardiovascular Surgical History: Reports: Coronary Artery Stent Female Surgical History: Reports: Hysterectomy Endocrine Surgical History: Reports: None Neurological Surgical History: Reports: None Musculoskeletal Surgical History: Reports: None Dermatological Surgical History: Reports: None Social & Family History - Caffeine Use Caffeine Use: Reports: Soda ED ROS GENERAL - Review of Systems Review Of Systems: See Below Constitutional: Reports: No Symptoms HEENT: Reports: Glasses Respiratory: Reports: Shortness of Breath Cardiovascular: Denies: Chest Pain Endocrine: Reports: No Symptoms GI/Abdominal: Reports: No Symptoms : Reports: No Symptoms Musculoskeletal: Reports: No Symptoms Skin: Reports: No Symptoms Neurological: Reports: Difficulty Walking, Weakness, Gait Disturbance. Denies: Dizziness, Headache, Paresthesia, Change in Speech Psychiatric: Reports: Depression Hematologic/Lymphatic: Reports: No Symptoms Immunologic: Reports: No Symptoms ED EXAM, NEURO - Physical Exam Exam: See Below Exam Limited By: No Limitations General Appearance: Alert, WD/WN, No Apparent Distress Eye Exam: Bilateral Eye: EOMI, PERRL Ears: Hearing Grossly Normal Nose: Normal Inspection Throat/Mouth: Normal Inspection, Normal Voice, No Airway Compromise Head Exam: Atraumatic, Normocephalic Neck: Normal Inspection, Supple, Non-Tender, Full Range of Motion Respiratory/Chest: No Respiratory Distress, Lungs Clear, Normal Breath Sounds, No Accessory Muscle Use, Chest Non-Tender Cardiovascular: Normal Peripheral Pulses, Regular Rate, Rhythm GI/Abdominal: Soft, Non-Tender Neurological: Alert, CN II-XII Intact, No Motor/Sensory Deficits, Abnormal Gait (Weakness), Difficulty Walking (Neurolyse weakness unsteady gait), Other (Clonus is negative) Back Exam: Normal Inspection Extremities: Normal Inspection, Normal Range of Motion, Pedal Edema (Mild) Psychiatric: Depressed Mood, Flat Affect Skin Exam: Warm, Dry, Intact, Normal Color, No Rash #1 Interpretation EKG Date: 08/01/21 Time: 15:10 Rhythm: Other (Anus bradycardia) QRS: Normal ST-T: Other (V1 V2) QT: Normal Comparison: NA - No Prior EKG EKG Interpretation Comments: Sinus bradycardia Voltage criteria for left ventricular hypertrophy Inferior infarct, possible acute Anterior infarct, age undetermined Acute WV Consider right ventricular involvement an acute inferior infarct Abnormal ECG Course - Vital Signs Last Recorded V/S: Last Vital Signs Temp 97.9 F 08/01/21 14:28 Pulse 69 08/01/21 14:28 Resp 16 08/01/21 14:28 BP 175/80 H 08/01/21 14:28 Pulse Ox 96 08/01/21 14:28 - Orders/Labs/Meds Orders: Active Orders 24 hr Category Date Time Status CORONAVIRUS COVID-19 RAPID [MOLEC] Stat Lab 08/01/21 16:55 Ordered TROPONIN I HIGH SENSITIVITY [CHEM] Timed Lab 08/01/21 17:01 Ordered EKG 12 Lead [EK] Stat Ther 08/01/21 14:01 Ordered Labs: Laboratory Tests 08/01/21 08/01/21 08/01/21 Range/Units 14:20 14:20 14:20 WBC 9.35 (5.00-10.00) 10^3/uL RBC 4.71 (3.80-5.50) 10^6/uL Hgb 14.0 D (12.0-16.0) g/dL Hct 42.1 (37.0-47.0) % MCV 89.4 (82.0-92.0) fL MCH 29.7 (27.0-31.0) pg MCHC 33.3 (32.0-36.0) g/dL RDW 14.9 H (11.5-14.5) % Plt Count 317 (150-400) 10^3/uL MPV 10.0 (7.4-10.4) fL Immature Gran % (Auto) 0.1 (0.0-5.0) % Neut % (Auto) 70.3 H (50.0-70.0) % Lymph % (Auto) 19.1 L (20.0-40.0) % Frio % (Auto) 8.9 H (2.0-8.0) % Eos % (Auto) 1.2 (1.0-3.0) % Baso % (Auto) 0.4 (0.0-1.0) % Neut # (Auto) 6.57 (2.50-7.00) 10^3/uL Lymph # (Auto) 1.79 (1.00-4.00) 10^3/uL Frio # (Auto) 0.83 H (0.10-0.80) 10^3/uL Eos # (Auto) 0.11 (0.10-0.30) 10^3/uL Baso # (Auto) 0.04 (0.00-0.10) 10^3/uL Immature Gran # (Auto) 0.01 (0.00-0.50) 10^3/uL Sodium 141 (136-145) mmol/L Potassium 3.8 (3.5-5.1) mmol/L Chloride 104 (98-107) mmol/L Carbon Dioxide 22.6 (21.0-32.0) mmol/L Anion Gap 18.2 H (5-15) mmol/L BUN 14 (7-18) mg/dL Creatinine 0.80 (0.51-1.17) mg/dL Est Cr Clr Drug Dosing 51.81 mL/min Estimated GFR (MDRD) > 60 mL/min Glucose 113 (70-140) mg/dL Calcium 9.6 (8.7-10.3) mg/dL Total Bilirubin 0.5 (0.2-1.0) mg/dL AST 27 (15-37) U/L ALT 26 (14-63) U/L Alkaline Phosphatase 127 H (46-116) U/L Troponin I High Sens 10.200 (0-51.000) pg/mL B-Natriuretic Peptide 141 H (0-100) pg/mL Total Protein 7.4 (6.4-8.2) g/dL Albumin 3.41 (3.40-5.00) g/dL Meds: Medications Discontinued Medications Generic Name Dose Route Start Last Admin Trade Name Artur PRN Reason Stop Dose Admin Aspirin Confirm 08/01/21 14:11 08/01/21 15:54 Aspirin 81 Mg Tab.Chew Administered 08/01/21 14:12 Not Given Dose 324 mg .ROUTE .STK-MED ONE Aspirin 324 mg 08/01/21 14:14 08/01/21 14:53 Aspirin 81 Mg Tab.Chew PO 08/01/21 14:15 324 mg ONETIME ONE Administration - Radiology Interpretation Free Text/Narrative:: CT head stroke protocol Findings: No intracranial hemorrhage, extra-axial fluid collection, mass, or acute ischemia. Area of hypodensity within the left frontal lobe likely represents old infarct. Generalized paronychial atrophy with scattered areas of nonspecific white matter disease, commonly seen as a sequela of chronic microvascular ischemia. Soft tissues are unremarkable. Paranasal sinuses and mastoid air cells are clear. Impression: No definite evidence of acute intracranial process. If continuing concern, MRI of the brain is recommended for further evaluation. Chest portable Indication: Hypertension, weakness Discussion: Cardiomedial silhouette is normal in size and contour No infiltrate, effusion, pneumothorax, or edema Impression: No acute cardiopulmonary abnormality - Re-Assessments/Exams Free Text/Narrative Re-Assessment/Exam: 08/01/21 16:57 And a currently is in no acute distress. She continues to deny any chest pain she is resting comfortably. She still feels weakness in her lower legs. Her CT head was unremarkable. Vital signs remained stable. Troponin was planned for repeat in 2 hours post initial draw. Departure - Departure Time of Disposition: 15:51 Disposition: DC/Tfer W/I Hosp To Swing 61 Condition: Fair Clinical Impression: Weakness generalized, H/O medication noncompliance - Discharge Information Instructions: Humerus Fracture Treated With Immobilization, [id number] Referrals: Ariana Monte, HIM ANALYST [Primary Care Provider] - Forms: ED Department Discharge Sepsis Event Note (ED) - Focused Exam Vital Signs: Vital Signs Temp Pulse Resp BP Pulse Ox 08/01/21 14:28 97.9 F 69 16 175/80 H 96 - My Orders Last 24 Hours: My Active Orders 08/01/21 14:01 EKG 12 Lead [EK] Stat 08/01/21 16:55 CORONAVIRUS COVID-19 RAPID [MOLEC] Stat 08/01/21 17:01 TROPONIN I HIGH SENSITIVITY [CHEM] Timed - Assessment/Plan Last 24 Hours: My Active Orders 08/01/21 14:01 EKG 12 Lead [EK] Stat 08/01/21 16:55 CORONAVIRUS COVID-19 RAPID [MOLEC] Stat 08/01/21 17:01 TROPONIN I HIGH SENSITIVITY [CHEM] Timed Assessment:: Generalized weakness complaint Recent hospital admission for hypertension, generalized weakness. Plan: Is having difficulty maintaining her self cares at home. She has difficulty getting up from a couch. Her blood pressures have been improved and are currently being managed as she was off her medications for greater than 5 years due to financial burdens. She is not currently complaining of any chest pain shortness of breath. She is neurologically intact. CT scan was negative for acute stroke findings. Her troponin was repeated as her EKG suggested a possible acute [place]. Her first troponin was normal repeat troponin II hours post draw was also normal. Patient already qualified for 3-day in-hospital stay she is going to be placed in swing bed and have physical therapy work with her. disabilities services officer will be involved to facilitate patient's capability of continuing to maintain independent care. I discussed these findings with on- call provider from [facility] who will accept swing bed transition.
[2021-08-01] MEDS ORDERED: Acetaminophen 325 MG Tab PO PRN ×2 (18:36→18:38)
--- NOTE | 2021-08-01 18:36 | PCM.HP.2 ---
H&P History of Present Illness - General Date of Service: 08/01/21 Admit Problem/Dx: Admission Diagnosis/Problem Admission Diagnosis/Problem Weakness - Related Data Allergies/Adverse Reactions: Allergies Allergy/AdvReac Type Severity Reaction Status Date / Time thimerosal Allergy Facial Verified 08/01/21 14:33 Swelling Home Medications: Home Meds Acetaminophen [Tylenol] 650 mg PO Q4H PRN tablet 07/13/21 [Rx] Aspirin 81 mg PO WITHBREAKFAST tab.chew 07/13/21 [Rx] Metoprolol Tartrate [Lopressor] 50 mg PO BID tablet 07/13/21 [Rx] amLODIPine [Norvasc] 5 mg PO DAILY tablet 07/13/21 [Rx] atorvaSTATin [Lipitor] 80 mg PO BEDTIME tablet 07/13/21 [Rx] lisinopriL [Prinivil] 10 mg PO DAILY tablet 07/13/21 [Rx] Past Medical History HEENT History: Reports: Impaired Vision Cardiovascular History: Reports: Hypertension, PA, Stents Respiratory History: Reports: Bronchitis, Recurrent [employer] History: Reports: Musculoskeletal History: Reports: None Neurological History: Reports: None Psychiatric History: Reports: None Endocrine/Metabolic History: Reports: None Hematologic History: Reports: None Immunologic History: Reports: None Oncologic (Cancer) History: Reports: None Dermatologic History: Reports: None - Infectious Disease History Infectious Disease History: Reports: Chicken Pox, Measles, Mumps, Other (See Below) Other Infectious Disease History: Hepatitis unknown type - Past Surgical History Cardiovascular Surgical History: Reports: Coronary Artery Stent Female Surgical History: Reports: Hysterectomy Endocrine Surgical History: Reports: None Neurological Surgical History: Reports: None Musculoskeletal Surgical History: Reports: None Dermatological Surgical History: Reports: None Social & Family History - Tobacco Use Tobacco Use Status *Q: Current Every Day Tobacco User Years of Tobacco use: 40 Packs/Tins Daily: 0.5 - Caffeine Use Caffeine Use: Reports: Coffee, Soda - Recreational Drug Use Recreational Drug Use: No H&P Review of Systems - Review of Systems: Review Of Systems: See Below General: Reports: Weakness (R sided weakness with onset "a couple of days ago") HEENT: Reports: No Symptoms Pulmonary: Reports: No Symptoms Cardiovascular: Reports: No Symptoms Gastrointestinal: Reports: No Symptoms Genitourinary: Reports: No Symptoms Musculoskeletal: Reports: Neck Pain (posterior neck "like I slept wrong") Skin: Reports: No Symptoms Psychiatric: Reports: No Symptoms Neurological: Reports: Weakness (R arm and leg) Exam - Exam Exam: See Below - Vital Signs Vital Signs: Last Vital Signs Temp 97.9 F 08/01/21 14:28 Pulse 57 L 08/01/21 17:15 Resp 15 08/01/21 17:15 BP 166/79 H 08/01/21 17:15 Pulse Ox 97 08/01/21 17:15 Weight: 177 lb - Exam Quality Assessment: No: Supplemental Oxygen General: Alert, Oriented, Cooperative. No: Mild Distress HEENT: Conjunctiva Clear, Mucosa Moist & [place] Neck: Supple, Trachea Midline Lungs: Decreased Breath Sounds. No: Crackles, Rhonchi, Wheezing Cardiovascular: Regular Rate, Regular Rhythm. No: Systolic Murmur GI/Abdominal Exam: Normal Bowel Sounds, Soft, Non-Tender, No Distention (Female) Exam: Deferred Rectal (Female) Exam: Deferred Back Exam: Normal Inspection Extremities: Normal Inspection, Non-Tender, Pedal Edema (non-pitting bilaterally ) Peripheral Pulses: 2+: Dorsalis Pedis (L), Dorsalis Pedis (R) Skin: Warm, Dry, Intact Neurological: Cranial Nerves Intact, Normal Speech, Focal Deficit (R sided weakness, strength 4/5 RUE, 2/5 RLE). No: Strength Equal Bilateral Neuro Extensive - Mental Status: Alert, Oriented x3, Normal Mood/Affect, Normal Cognition, Memory Intact Neuro Extensive - Motor, Sensory, Reflexes: CN II-XII Intact, Pronator Drift (R), Abnormal Heel to Guillen (R sided). No: Tongue Deviation (R), Facial Palsy (R), Pronator Drift (L), Abnormal Finger to Nose Psychiatric: Alert, Normal Affect, Normal Mood - Patient Data Lab Results Last 24 hrs: Laboratory Results - last 24 hr 08/01/21 08/01/21 08/01/21 Range/Units 14:20 14:20 14:20 WBC 9.35 (5.00-10.00) 10^3/uL RBC 4.71 (3.80-5.50) 10^6/uL Hgb 14.0 D (12.0-16.0) g/dL Hct 42.1 (37.0-47.0) % MCV 89.4 (82.0-92.0) fL MCH 29.7 (27.0-31.0) pg MCHC 33.3 (32.0-36.0) g/dL RDW 14.9 H (11.5-14.5) % Plt Count 317 (150-400) 10^3/uL MPV 10.0 (7.4-10.4) fL Immature Gran % (Auto) 0.1 (0.0-5.0) % Neut % (Auto) 70.3 H (50.0-70.0) % Lymph % (Auto) 19.1 L (20.0-40.0) % [place] % (Auto) 8.9 H (2.0-8.0) % Eos % (Auto) 1.2 (1.0-3.0) % Baso % (Auto) 0.4 (0.0-1.0) % Neut # (Auto) 6.57 (2.50-7.00) 10^3/uL Lymph # (Auto) 1.79 (1.00-4.00) 10^3/uL [place] # (Auto) 0.83 H (0.10-0.80) 10^3/uL Eos # (Auto) 0.11 (0.10-0.30) 10^3/uL Baso # (Auto) 0.04 (0.00-0.10) 10^3/uL Immature Gran # (Auto) 0.01 (0.00-0.50) 10^3/uL Sodium 141 (136-145) mmol/L Potassium 3.8 (3.5-5.1) mmol/L Chloride 104 (98-107) mmol/L Carbon Dioxide 22.6 (21.0-32.0) mmol/L Anion Gap 18.2 H (5-15) mmol/L BUN 14 (7-18) mg/dL Creatinine 0.80 (0.51-1.17) mg/dL Est Cr Clr Drug Dosing 51.81 mL/min Estimated GFR (MDRD) > 60 mL/min Glucose 113 (70-140) mg/dL Calcium 9.6 (8.7-10.3) mg/dL Total Bilirubin 0.5 (0.2-1.0) mg/dL AST 27 (15-37) U/L ALT 26 (14-63) U/L Alkaline Phosphatase 127 H (46-116) U/L Troponin I High Sens 10.200 (0-51.000) pg/mL B-Natriuretic Peptide 141 H (0-100) pg/mL Total Protein 7.4 (6.4-8.2) g/dL Albumin 3.41 (3.40-5.00) g/dL SARS CoV-2 RNA Rapid SATISH (NEGATIVE) 08/01/21 08/01/21 Range/Units 16:52 17:03 WBC (5.00-10.00) 10^3/uL RBC (3.80-5.50) 10^6/uL Hgb (12.0-16.0) g/dL Hct (37.0-47.0) % MCV (82.0-92.0) fL MCH (27.0-31.0) pg MCHC (32.0-36.0) g/dL RDW (11.5-14.5) % Plt Count (150-400) 10^3/uL MPV (7.4-10.4) fL Immature Gran % (Auto) (0.0-5.0) % Neut % (Auto) (50.0-70.0) % Lymph % (Auto) (20.0-40.0) % [place] % (Auto) (2.0-8.0) % Eos % (Auto) (1.0-3.0) % Baso % (Auto) (0.0-1.0) % Neut # (Auto) (2.50-7.00) 10^3/uL Lymph # (Auto) (1.00-4.00) 10^3/uL [place] # (Auto) (0.10-0.80) 10^3/uL Eos # (Auto) (0.10-0.30) 10^3/uL Baso # (Auto) (0.00-0.10) 10^3/uL Immature Gran # (Auto) (0.00-0.50) 10^3/uL Sodium (136-145) mmol/L Potassium (3.5-5.1) mmol/L Chloride (98-107) mmol/L Carbon Dioxide (21.0-32.0) mmol/L Anion Gap (5-15) mmol/L BUN (7-18) mg/dL Creatinine (0.51-1.17) mg/dL Est Cr Clr Drug Dosing mL/min Estimated GFR (MDRD) mL/min Glucose (70-140) mg/dL Calcium (8.7-10.3) mg/dL Total Bilirubin (0.2-1.0) mg/dL AST (15-37) U/L ALT (14-63) U/L Alkaline Phosphatase (46-116) U/L Troponin I High Sens 13.300 (0-51.000) pg/mL B-Natriuretic Peptide (0-100) pg/mL Total Protein (6.4-8.2) g/dL Albumin (3.40-5.00) g/dL SARS CoV-2 RNA Rapid SATISH Negative (NEGATIVE) Result Diagrams: 08/01/21 14:20 08/01/21 14:20 Sepsis Event Note - Evaluation Sepsis Screening Result: No Definite Risk - Focused Exam Vital Signs: Vital Signs Temp Pulse Resp BP Pulse Ox 08/01/21 17:15 57 L 15 166/79 H 97 08/01/21 16:45 62 17 184/70 H 95 08/01/21 16:15 59 L 12 168/75 H 96 08/01/21 14:45 57 L 14 142/57 H 94 L 08/01/21 14:28 97.9 F 69 16 175/80 H 96 08/01/21 14:15 61 13 142/79 H 93 L Problem List Initiated/Reviewed/Updated: Yes Orders Last 24hrs: Active Orders 24 hr Category Date Time Status Patient Status [ADT] Routine ADT 08/01/21 17:40 Active Vital Signs [RC] Q4H Care 08/01/21 17:40 Active EKG 12 Lead [EK] Stat Ther 08/01/21 14:01 Ordered Assessment/Plan Comment:: HPI summary: Madhuri is a 71 yF who presented to the ED for complaints of lower extremity weakness and high blood pressure reading at home. Patient was recently hospitalized for hypertensive emergency and generalized weakness from 07/09- 07/13/21. Patient was evaluated by PT at that time and deemed to be strong enough to return home without a swing bed stay for strengthening. Patient appears to have declined since discharge home and brought back to the ER for evaluation this afternoon. No neurological deficits noted per ER provider. BP without significant elevation in ER. Patient was seen per myself at the [facility] on 07/16 for HTN follow-up and BP 158/88 at that visit. Patient was continued on triple therapy and lisinopril dose increased slightly at that time. Patient scheduled to follow-up in clinic with echo on 08/12/21. ED course: EKG indicated possible acute PA, ASA 324mg given in ER. Patient denied CP. CXR indicated no acute process. 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 No acute intracranial process, recommended consideration for MRI if concerns. WBC 9.35, Hgb 14.0, Plt 317. Na 141, K 3.8, BUN 14, Creatinine 0.80, Alk phos 127, Trop negative x 2, BNP 141. Patient admitted to swing bed status given recent hospitalization for HTN, generalized weakness with discharge home on 07/13. Hospital course: 08/01/21: Patient reports onset of R sided weakness a "couple of days ago." States she could not get off of the sofa earlier today which prompted the ER visit. Patient reports she has been experiencing posterior neck pain "like I slept wrong." No headaches or speech difficulty. R sided weakness appreciated on exam 4/5 to RUE, 2/5 to RLE. Patient unable to lift the R leg on her own accord and drift noted with passive elevation of the limb. Cranial nerves intact. No slurring of speech or facial droop appreciated. Lung sounds d iminished, HR regular rate and rhythm. Minimal peripheral edema bilaterally. Hospitalization problems and plan: # Right sided weakness - 4/5 of R arm, 2/5 R leg - called [facility] call and discussed patient case with stroke neurologist Dr Villarreal who suspects patient may have a subcortical stroke buried beneath her small vessel disease. No acute intervention indicated as last known well time was a couple of days ago per patient. Recommends giving a loading dose of plavix 300mg and continuing ASA 325mg and allow for permissive HTN up to 220/110. Hold BP meds. Advised to call late morning or early afternoon to check on bed status with discharges for patient transfer to [place] for CTA head/neck and likely brain MRI for further workup to determine etiology of R sided weakness. - HOLD BP MEDS and allow for permissive HTN - Continue ASA 325mg daily - 324mg given in ER this afternoon - Loading dose of plavix 300mg tonight # Generalized weakness - PT eval and treat - field services director consulted for discharge planning # Tobacco use - nicotine patch Chronic, stable conditions: # HTN - takes lisinopril 15mg, amlodipine 5mg and metoprolol tartrate 50mg PO BID (HOLD) # HLD - continue atorvastatin 80mg PO daily # Hx PA # Hx of cardiac stents x 3 in 2009 Hospitalization details: # FEN: oral intake; electrolytes stable; regular diet # PPX: Continue ASA and start plavix with loading dose of 300mg per stroke neuro # Code status: Full code # Emergency contact: Lupe Hobbs [phone] # Disposition: Patient admitted to swing bed status due to generalized weakness. Concerns for R sided weakness prompted stroke neuro consultation - possible transfer to [facility] tomorrow for additional imaging of CTA head and neck and brain MRI - will call in am to determine bed status based on anticipated discharges.
[2021-08-01] MEDS ORDERED: Clopidogrel 75 MG Tab PO ONE (20:33)
[2021-08-01] MEDS ORDERED: Metoprolol Tartrate 50 MG Tab PO SCH (21:00)
[2021-08-01] MEDS ORDERED: atorvaSTATin 40 MG Tab PO SCH (21:00)
[2021-08-02] MEDS ORDERED: Aspirin 81 MG Tab.Chew PO SCH (08:00)
[2021-08-02] MEDS ORDERED: Nicotine 14 MG/24 Hr Patch TRDERM SCH (09:00)
[2021-08-02] MEDS ORDERED: Lisinopril 10 MG Tab PO SCH (09:00)
[2021-08-02] MEDS ORDERED: amLODIPine 5 MG Tab PO SCH (09:00)
[2021-08-02] MEDS ORDERED: Aspirin 325 MG Tab.EC PO SCH (09:00)
[2021-08-02] MEDS ORDERED: Acetaminophen 325 MG Tab PO PRN (09:54)
[2021-08-02] MEDS ORDERED: Clopidogrel 75 MG Tab PO ONE (15:00)
--- NOTE | 2021-08-02 16:53 | PCM.DCSUM1 ---
Discharge Summary - Hospital Course Free Text/Narrative:: Date of admission: 08/01/21 Date of discharge: 08/02/21 Admission diagnoses: # Right sided weakness - 4/5 of R arm, 2/5 R leg - called [facility] call and discussed patient case with stroke neurologist Dr Villarreal who suspects patient may have a subcortical stroke buried beneath her small vessel disease. No acute intervention indicated as last known well time was a couple of days ago per patient. Recommends giving a loading dose of plavix 300mg and continuing ASA 325mg and allow for permissive HTN up to 220/110. Hold BP meds. - Called [facility] call to inquire regarding possible transfer with discharges this am, admission accepted per hospitalist Dr Bethea at [facility]. - HOLD BP MEDS and allow for permissive HTN - Continue ASA 81mg PO daily - Loading dose of plavix 300mg given evening of 08/01/21 - continue plavix 75mg PO daily # Generalized weakness # Tobacco use - nicotine patch Discharge diagnoses: # HTN - takes lisinopril 15mg, amlodipine 5mg and metoprolol tartrate 50mg PO BID (HOLD) # HLD - continue atorvastatin 80mg PO daily # Hx HI # Hx of cardiac stents x 3 in 2009 Consultations: Dr Villarreal with [facility] stroke neurology - HPI summary: Madhuri is a 71 yF who presented to the ED for complaints of lower extremity weakness and high blood pressure reading at home. Patient was recently hospitalized for hypertensive emergency and generalized weakness from 07/09- 07/13/21. Patient was evaluated by PT at that time and deemed to be strong enough to return home without a swing bed stay for strengthening. Patient appears to have declined since discharge home and brought back to the ER for evaluation this afternoon. No neurological deficits noted per ER provider. BP without significant elevation in ER. Patient was seen per myself at the [facility] clinic on 07/16 for HTN follow-up and BP 158/88 at that visit. Patient was continued on triple therapy and lisinopril dose increased slightly at that time. Patient scheduled to follow-up in clinic with echo on 08/12/21. ED course: EKG indicated possible acute HI, ASA 324mg given in ER. Patient denied CP. CXR indicated no acute process. 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 No acute intracranial process, recommended consideration for MRI if concerns. WBC 9.35, Hgb 14.0, Plt 317. Na 141, K 3.8, BUN 14, Creatinine 0.80, Alk phos 127, Trop negative x 2, BNP 141. Patient admitted to swing bed status given recent hospitalization for HTN, generalized weakness with discharge home on 07/13. Hospital course: 08/01/21: Patient reports onset of R sided weakness a "couple of days ago." States she could not get off of the sofa earlier today which prompted the ER visit. Patient reports she has been experiencing posterior neck pain "like I slept wrong." No headaches or speech difficulty. R sided weakness appreciated on exam 4/5 to RUE, 2/5 to RLE. Patient unable to lift the R leg on her own accord and drift noted with passive elevation of the limb. Cranial nerves intact. No slurring of speech or facial droop appreciated. Lung sounds diminished, HR regular rate and rhythm. Minimal peripheral edema bilaterally. 08/02/21: Patient continues to have R sided weakness, essentially unchanged from admit. No slurred speech or facial drooping. Continuing to hold BP meds, BP 181/72, HR 64, T 97.6, RR 20, 96% on room air. Called [facility] call to inquire about transfer for further evaluation of right sided weakness and suspected stroke. No beds available until afternoon due to discharge plans, [facility] will call once bed available for patient. She is out of TPA window due to duration of symptoms, no acute treatment anticipated. Will continue plavix 75mg PO daily with medication administered prior to transfer this afternoon. Patient to be transported to [place] by ground ambulance once a bed becomes available for her in [place]. Discharge and follow-up recommendations: - Discharge to [facility] via ground ambulance for stroke neurology evaluation and advanced brain imaging due to R sided weakness - New medications at discharge: Plavix loading dose given last evening per Dr Villarreal - continue 75mg PO daily in addtion to ASA 81mg for dual antiplatelet therapy. Holding antihypertensive medications to allow for permissive hypertension. - Follow-up following acute hospital stay in [place] for suspected CVA - Discharge Data Discharge Date: 08/02/21 Discharge Disposition: DC/Tfer to Acute Hospital 02 Condition: Good - Referral to Home Health Primary Care Physician: Ariana Monte NP - Patient Summary/Data Consults: Consultations 08/01/21 18:35 PT Evaluation and Treatment [CONS] Routine 08/01/21 18:36 Consult to Case Management/Spot Cleaner [CONS] Routine - Discharge Plan *PRESCRIPTION DRUG MONITORING PROGRAM REVIEWED*: Not Applicable *COPY OF PRESCRIPTION DRUG MONITORING REPORT IN PATIENT ANGELA: Not Applicable Home Medications: Home Meds Acetaminophen [Tylenol] 650 mg PO Q4H PRN tablet 07/13/21 [Rx] Aspirin 81 mg PO WITHBREAKFAST tab.chew 07/13/21 [Rx] Metoprolol Tartrate [Lopressor] 50 mg PO BID tablet 07/13/21 [Rx] amLODIPine [Norvasc] 5 mg PO DAILY tablet 07/13/21 [Rx] atorvaSTATin [Lipitor] 80 mg PO BEDTIME tablet 07/13/21 [Rx] lisinopriL [Prinivil] 10 mg PO DAILY tablet 07/13/21 [Rx] Nicotine [Habitrol] 14 mg TRDERM DAILY patch 08/02/21 [Rx] Oxygen Therapy Mode: Room Air Referrals: Ariana Monte NP [Primary Care Provider] - - Discharge Summary/Plan Comment DC Time >30 min.: Yes Total # of Minutes for Discharge Time: 35 - General Info Date of Service: 08/02/21 Functional Status: Reports: Pain Controlled, Tolerating Diet, Urinating. Denies: Ambulating - Review of Systems General: Reports: Weakness HEENT: Reports: Headaches Pulmonary: Reports: No Symptoms Cardiovascular: Reports: Edema (minimal ) Gastrointestinal: Reports: No Symptoms Genitourinary: Reports: No Symptoms Musculoskeletal: Reports: Neck Pain (posterior neck pain) Skin: Reports: No Symptoms Neurological: Reports: Headache, Weakness (R sided weakness) Psychiatric: Reports: No Symptoms - Patient Data Vitals - Most Recent: Last Vital Signs Temp 96.8 F L 08/02/21 09:00 Pulse 58 L 08/02/21 09:00 Resp 19 08/02/21 09:00 BP 167/86 H 08/02/21 09:00 Pulse Ox 96 08/02/21 09:00 Weight - Most Recent: 173 lb 8 oz I&O - Last 24 hours: Intake & Output 08/02/21 08/02/21 08/02/21 06:59 14:59 22:59 Intake Total 50 400 Balance 50 400 Lab Results - Last 24 hrs: Laboratory Results - last 24 hr 08/01/21 08/01/21 Range/Units 16:52 17:03 Troponin I High Sens 13.300 (0-51.000) pg/mL SARS CoV-2 RNA Rapid SATISH Negative (NEGATIVE) Med Orders - Current: Current Medications Acetaminophen (Acetaminophen 325 Mg Tab) 650 mg PO Q4H PRN PRN Reason: Pain (Mild 1-3)/fever Last Admin: 08/02/21 09:58 Dose: 650 mg Documented by: Aspirin (Aspirin 325 Mg Tab.Ec) 325 mg PO DAILY [facility] Last Admin: 08/02/21 09:49 Dose: 325 mg Documented by: Atorvastatin Calcium (Atorvastatin 40 Mg Tab) 80 mg PO BEDTIME [facility] Last Admin: 08/01/21 20:12 Dose: 80 mg Documented by: Nicotine (Nicotine 14 Mg/24 Hr Patch) 14 mg TRDERM DAILY [facility] Last Admin: 08/02/21 09:50 Dose: 14 mg Documented by: Discontinued Medications Acetaminophen (Acetaminophen 325 Mg Tab) 650 mg PO Q4H PRN PRN Reason: Pain (Mild 1-3)/fever Acetaminophen (Acetaminophen 325 Mg Tab) 650 mg PO Q4H PRN PRN Reason: Pain Amlodipine Besylate (Amlodipine 5 Mg Tab) 5 mg PO DAILY [facility] Aspirin (Aspirin 81 Mg Tab.Chew) Confirm Administered Dose 324 mg .ROUTE .STK- MED ONE Stop: 08/01/21 14:12 Last Admin: 08/01/21 15:54 Dose: Not Given Documented by: Aspirin (Aspirin 81 Mg Tab.Chew) 324 mg PO ONETIME ONE Stop: 08/01/21 14:15 Last Admin: 08/01/21 14:53 Dose: 324 mg Documented by: Aspirin (Aspirin 81 Mg Tab.Chew) 81 mg PO WITHBREAKFAST [facility] Clopidogrel Bisulfate (Clopidogrel 75 Mg Tab) 300 mg PO ONETIME ONE Stop: 08/01/21 20:34 Last Admin: 08/01/21 20:49 Dose: 300 mg Documented by: Clopidogrel Bisulfate (Clopidogrel 75 Mg Tab) 75 mg PO ONETIME ONE Stop: 08/02/21 15:01 Last Admin: 08/02/21 15:00 Dose: 75 mg Documented by: Lisinopril (Lisinopril 10 Mg Tab) 15 mg PO DAILY [facility] Metoprolol Tartrate (Metoprolol Tartrate 50 Mg Tab) 50 mg PO BID YADIRA Last Admin: 08/01/21 20:13 Dose: 50 mg Documented by: - Exam General: Reports: Alert, Oriented, Cooperative, No Acute Distress HEENT: Reports: Pupils Equal, Pupils Reactive, Mucous Membr. Moist/[place] Neck: Reports: Supple, Trachea Midline Lungs: Reports: Decreased Breath Sounds. Denies: Rhonchi, Wheezing Cardiovascular: Reports: Regular Rate, Regular Rhythm, No Murmurs GI/Abdominal Exam: Normal Bowel Sounds, Soft, Non-Tender, No Abnormal Bruit (Female) Exam: Deferred Rectal (Female) Exam: Deferred Back Exam: Reports: Normal Inspection, Full Range of Motion Extremities: Normal Inspection, Non-Tender, Normal Capillary Refill, Pedal Edema (trace), Limited Range of Motion (right upper and lower extremities ) Skin: Reports: Warm, Dry, Intact Neurological: Reports: Normal Speech, Cranial Nerves Intact. Denies: Normal Gait, Normal Tone (2-3/5 strength to RLE, 3-4/5 strength to RUE), Strength Equal Bilateral (R sided weakness 4/5 strength to R arm, 2-3/5 to R leg ) Psy/Mental Status: Reports: Alert, Depressed (Patient nearly tearful regarding inability to lift her right leg under her own accord)
== END 2021-08-02 16:15 | DRG 948 ==
LOC: KA.ED 13:33 → UNDOADMIN 17:40 → KA.MS 17:40 → KA.ED 18:15 → EDSTATUS 08-02 16:00 → UNDODISIN 08-02 16:15
PROVIDERS: ADMIT Physician Assistant; ATTEND Nurse Practitioner Family
DX: R53.1 Weakness (principal); Z91.14 Patient's other noncompliance with medication regimen; F17.210 Nicotine dependence, cigarettes, uncomplicated; I10 Essential (primary) hypertension; E78.5 Hyperlipidemia, unspecified; H54.7 Unspecified visual loss; I25.2 Old myocardial infarction; Z95.5 Presence of coronary angioplasty implant and graft; Z79.82 Long term (current) use of aspirin; Z79.02 Long term (current) use of antithrombotics/antiplatelets; Z90.710 Acquired absence of both cervix and uterus; Z79.899 Other long term (current) drug therapy; Z88.8 Allergy status to other drugs, medicaments and biological substances; Z91.19 Patient's noncompliance with other medical treatment and regimen; Z20.822 Contact with and (suspected) exposure to COVID-19
CPT/HCPCS: 36415; 70450; 71045; 80053; 83880; 84484; 85025; 93005; 93010; 99284; 99285-25; A9270-GY; U0002

== ENCOUNTER 2021-08-01 13:33 | Emergency (ER) | payer MEDICARE ==
[2021-08-01 14:45] LABS: ANION GAP 18.2 mmol/L (5-15); CHLORIDE,CL 104 mmol/L (98-107); SODIUM,NA 141 mmol/L (136-145)
[2021-08-01] MEDS ORDERED: Aspirin 81 MG Tab.Chew PO ONE (14:53)
--- NOTE | 2021-08-01 14:57 | CT ---
[id number] CT/CT Head Stroke Protocol EXAM: CT Head Stroke Protocol CLINICAL DATA: WEAKNESS. COMPARISON STUDY: None FINDINGS: No intracranial hemorrhage, extra-axial fluid collection, mass, or acute ischemia. Area of hypodensity within the left frontal lobe likely represents old infarct. Generalized parenchymal atrophy with scattered areas of nonspecific white matter disease, commonly seen as sequela of chronic microvascular ischemia. Soft tissues are unremarkable. Paranasal sinuses and mastoid air cells are clear. IMPRESSION: 1. No definite evidence of acute intracranial process. If continued concern, MRI of the brain is recommended for further evaluation. Raymond Sweeney DO 08/01/21 [id number] Thank you for allowing us to participate in the care of your patient.
--- NOTE | 2021-08-01 15:17 | CR ---
[id number] RAD/RAD Chest Portable EXAM: RAD Chest Portable INDICATION: HYPERTENSION, WEAKNESS. COMPARISON: July 09, 2021 DISCUSSION: Cardiomediastinal silhouette is normal in size and contour. No infiltrate, effusion, pneumothorax, or edema. IMPRESSION: No acute cardiopulmonary abnormality. Raymond Sweeney DO 08/01/21 [id number] Thank you for allowing us to participate in the care of your patient.
== END 2021-08-01 17:40 | disposition swing bed (61) ==
LOC: KA.ED 13:33
DX: R53.1 Weakness (principal); I10 Essential (primary) hypertension; I25.2 Old myocardial infarction; R00.1 Bradycardia, unspecified; R94.31 Abnormal electrocardiogram [ECG] [EKG]; Z88.8 Allergy status to other drugs, medicaments and biological substances; Z79.899 Other long term (current) drug therapy; Z20.822 Contact with and (suspected) exposure to COVID-19
CPT/HCPCS: 36415; 70450; 71045; 80053; 83880; 84484; 85025; 93005; 93010; 99284; 99285-25; A9270-GY; U0002

== ENCOUNTER 2022-07-05 12:10 | Emergency (ER) | payer MEDICARE ==
[~2022-07-05 12:10] MED LIST: Sodium Chloride 0.9% 1,000 ML IV ONE
[2022-07-05] MEDS ORDERED: Sodium Chloride 0.9% 10 ML Syringe IV PRN (14:27)
[2022-07-22 13:24] LABS: ANION GAP 32.2 mmol/L (5-15); CHLORIDE,CL 96 mmol/L (98-115); SODIUM,NA 136 mmol/L (136-145)
[2022-07-22 13:25] LABS: ESTIMATED GFR 7 mL/min (>=60)
== END 2022-07-05 16:55 ==
LOC: KA.ED 12:10
DX: N17.9 Acute kidney failure, unspecified (principal); R79.89 Other specified abnormal findings of blood chemistry
CPT/HCPCS: 36415; 72100; 74022; 80053; 81001; 83605; 84484; 85025; 93005; 93010; 99284; 99285; J7030

== ENCOUNTER 2022-07-09 13:15 | Inpatient (IN) | payer MEDICARE, MEDICAID ==
[2022-07-12] MEDS ORDERED: Loratadine 10 MG Tab PO PRN (14:41)
[2022-07-12] MEDS ORDERED: Loperamide 2 MG Cap PO PRN (14:41)
[2022-07-12] MEDS ORDERED: Acetaminophen 325 MG Tab PO PRN (14:42)
[2022-07-12] MEDS ORDERED: Carboxymethylcellulose Sodium 0.5% Ophth Soln 15 ML Bottle EYELF PRN (14:43)
[2022-07-12] MEDS: Metoprolol Tartrate 50 MG Tab PO SCH (20:00)
[2022-07-12] MEDS: Calcium Citrate/Vitamin D3 315 MG-250 Unit Tab PO SCH (20:00)
[2022-07-13] MEDS: Omeprazole 20 MG Cap.CR PO SCH (07:46)
[2022-07-13] MEDS: atorvaSTATin 40 MG Tab PO SCH (08:08)
[2022-07-13] MEDS: Cholecalciferol (Vitamin D3) 25 MCG Tab PO SCH (08:08)
[2022-07-13] MEDS: Aspirin 81 MG Tab.Chew PO SCH (08:08)
[2022-07-13] MEDS: Multivitamins with Minerals/Iron/Folic Acid/Lycopene Tab PO SCH (08:08)
[2022-07-13] MEDS: Metoprolol Tartrate 50 MG Tab PO SCH ×2 (08:09→21:08)
[2022-07-13] MEDS: Calcium Citrate/Vitamin D3 315 MG-250 Unit Tab PO SCH ×2 (08:09→21:07)
[2022-07-13] MEDS: Lisinopril 20 MG Tab PO SCH (08:09)
[2022-07-13] MEDS: amLODIPine 5 MG Tab PO SCH (08:09)
[2022-07-14] MEDS: Omeprazole 20 MG Cap.CR PO SCH (07:27)
[2022-07-14] MEDS: Cholecalciferol (Vitamin D3) 25 MCG Tab PO SCH (08:44)
[2022-07-14] MEDS: Multivitamins with Minerals/Iron/Folic Acid/Lycopene Tab PO SCH (08:44)
[2022-07-14] MEDS: Aspirin 81 MG Tab.Chew PO SCH (08:44)
[2022-07-14] MEDS: amLODIPine 5 MG Tab PO SCH (08:45)
[2022-07-14] MEDS: Lisinopril 20 MG Tab PO SCH (08:45)
[2022-07-14] MEDS: Calcium Citrate/Vitamin D3 315 MG-250 Unit Tab PO SCH (08:45)
[2022-07-14] MEDS: Metoprolol Tartrate 50 MG Tab PO SCH (08:46)
[2022-07-14] MEDS: atorvaSTATin 40 MG Tab PO SCH (08:46)
[2022-07-14 10:13] LABS: ANION GAP 10.4 mmol/L (5-15)
== END 2022-07-14 10:40 | DRG 948 ==
LOC: KA.MS 13:15
PROVIDERS: ADMIT Nurse Practitioner Family; ATTEND Family Medicine
DX: R53.81 Other malaise (principal); I10 Essential (primary) hypertension; I25.10 Atherosclerotic heart disease of native coronary artery without angina pectoris; E78.5 Hyperlipidemia, unspecified; K21.9 Gastro-esophageal reflux disease without esophagitis; H04.123 Dry eye syndrome of bilateral lacrimal glands; J31.0 Chronic rhinitis; Z86.73 Personal history of transient ischemic attack (TIA), and cerebral infarction without residual deficits; Z79.899 Other long term (current) drug therapy
CPT/HCPCS: 36415; 80048; 97110-GP; A9270-GY